=== PATIENT | female | born 1940 | race Caucasian/White ===

== ENCOUNTER 2019-02-09 16:31 | Inpatient (IN) ==
[2019-02-09] MEDS ORDERED: GLUCAGON 1 MG VIAL IM PRN (16:47)
[2019-02-09] MEDS ORDERED: DEXTROSE 50% 25 GM/50 ML SYRINGE IV PRN (16:47)
[2019-02-09] MEDS ORDERED: MAGNESIUM HYDROXIDE SUSP 30 ML UDCUP PO PRN (16:47)
[2019-02-09] MEDS ORDERED: ONDANSETRON 4 MG/2 ML VIAL IV PRN (16:47)
[2019-02-09] MEDS ORDERED: traMADol 50 MG TABLET PO PRN (16:47)
[2019-02-09] MEDS ORDERED: ACETAMINOPHEN 325 MG TABLET PO PRN (16:47)
[2019-02-09] MEDS ORDERED: ZINC OXIDE PASTE 113 GM TUBE TOP PRN (17:56)
[2019-02-09 18:05] LABS: Basophils % 0.4 % (0.0-0.8); Eosinophils # 0.1 10*3/uL (0.0-0.87); Hematocrit 39.3 VOL% (35.7-47.0); Hemoglobin 12.1 GM/DL (12.0-16.0); Immature Granulocytes % 0.4 %; Immature Granulocytes Absolute 0.02 #; Lymphocytes # 1.5 10*3/uL (1.4-4.0); Lymphocytes % 29.6 % (21.3-54.2); Mean Corpuscular HGB Conc 30.8 GM/DL (32-36); Mean Corpuscular Hemoglobin 29 PG (27-34); Mean Corpuscular Volume 93.3 FL (87-102); Mean Platelet Volume 9.3 FL (9.6-12.0); Monocytes # 0.4 10*3/uL (0.11-0.8); Monocytes % 8.3 % (1.7-12.7); Neutrophils % 59.3 % (38.7-73.9); Platelet Count 141 T/CUMM (130-400); Red Blood Count 4.21 MC/CUMM (3.8-5.5); Red Cell Distribution Width 14.7 % (9.3-17.3)
[2019-02-09] MEDS: SODIUM CHLORIDE 0.45% 1,000 ML IV SCH (18:20)
[2019-02-09] MEDS: methylPREDNISolone SOD SUC 40 MG/1 ML VIAL IV SCH (18:20)
[2019-02-09 18:27] LABS: Albumin 3.6 G/DL (3.4-5.0); Bilirubin,Total 0.5 MG/DL (0.2-1.0); Calcium 8.5 MG/DL (8.5-10.1); Osmolality,Calculated 279.3 MOS/KG (273-304); Potassium 2.8 MMOL/L (3.5-5.1)
[2019-02-09] MEDS ORDERED: POTASSIUM CHLORIDE 20 MEQ TABLET PO ONE (19:09)
[2019-02-09] MEDS ORDERED: POTASSIUM CHLORIDE 20 MEQ TABLET PO PRN (19:09)
[2019-02-09] MEDS: ALBUTEROL/IPRATROPIUM 3 ML NEB RESP TX SCH ×2 (19:28→23:43)
[2019-02-09] MEDS: INSULIN REGULAR 100 UNIT/ML SUBCUT SCH (20:41)
[2019-02-09] MEDS: BUDESONIDE/FORMOTEROL 160-4.5 INHALER 6 GM INH SCH (21:30)
[2019-02-09] MEDS: LEVOFLOXACIN INJ 750 MG in PREMIX 1 EACH IV SCH (21:32)
[2019-02-09] MEDS: CITALOPRAM 40 MG TABLET PO SCH (21:35)
[2019-02-09] MEDS: ATORVASTATIN 40 MG TABLET PO SCH (21:36)
[2019-02-09] MEDS: METOPROLOL TARTRATE 100 MG TABLET PO SCH (21:36)
[2019-02-09] MEDS: DOCUSATE SODIUM 100 MG CAPSULE PO SCH (21:36)
[2019-02-10] MEDS: methylPREDNISolone SOD SUC 40 MG/1 ML VIAL IV SCH ×4 (01:17→17:23)
[2019-02-10] MEDS: ALBUTEROL/IPRATROPIUM 3 ML NEB RESP TX SCH ×5 (02:40→19:17)
[2019-02-10 05:39] LABS: Calcium 8.4 MG/DL (8.5-10.1); Osmolality,Calculated 280.4 MOS/KG (273-304); Potassium 3.5 MMOL/L (3.5-5.1); Risk Ratio 1.84; VLDL CHOLESTEROL 10.4 MG/DL
[2019-02-10] MEDS: POTASSIUM CHLORIDE 20 MEQ TABLET PO SCH (08:08)
[2019-02-10] MEDS: TICAGRELOR 90 MG TABLET PO SCH (08:08)
[2019-02-10] MEDS: ASPIRIN EC 81 MG TABLET PO SCH (08:08)
[2019-02-10] MEDS: PANTOPRAZOLE 40 MG TABLET PO SCH (08:08)
[2019-02-10] MEDS: FUROSEMIDE 40 MG TABLET PO SCH (08:08)
[2019-02-10] MEDS: INSULIN REGULAR 100 UNIT/ML SUBCUT SCH ×4 (08:08→21:34)
[2019-02-10] MEDS: METOPROLOL TARTRATE 100 MG TABLET PO SCH ×2 (08:08→21:25)
[2019-02-10] MEDS: DOCUSATE SODIUM 100 MG CAPSULE PO SCH ×2 (08:08→21:25)
[2019-02-10 08:11] LABS: Troponin I < 0.015 NG/ML (0.00-0.045)
[2019-02-10] MEDS: BUDESONIDE/FORMOTEROL 160-4.5 INHALER 6 GM INH SCH ×2 (08:11→21:29)
[2019-02-10] MEDS: SODIUM CHLOR 0.45% KCL 20 MEQ 20 MEQ/1,000 ML BAG IV SCH ×2 (08:34→23:17)
[2019-02-10] MEDS: SODIUM CHLORIDE 0.45% 1,000 ML IV SCH (09:44)
[2019-02-10] MEDS ORDERED: NICOTINE 21 MG/24 HR PATCH TRANSDERM PRN (14:34)
[2019-02-10 16:45] LABS: Troponin I < 0.015 NG/ML (0.00-0.045)
[2019-02-10] MEDS: CITALOPRAM 40 MG TABLET PO SCH (21:25)
[2019-02-10] MEDS: ATORVASTATIN 40 MG TABLET PO SCH (21:25)
[2019-02-10] MEDS: LEVOFLOXACIN INJ 750 MG in PREMIX 1 EACH IV SCH (21:36)
[2019-02-10] MEDS: TEMAZEPAM 7.5 MG CAPSULE PO SCH (23:16)
[2019-02-11 00:12] LABS: Troponin I < 0.015 NG/ML (0.00-0.045)
[2019-02-11] MEDS: ALBUTEROL/IPRATROPIUM 3 ML NEB RESP TX SCH ×7 (00:36→22:55)
[2019-02-11] MEDS: methylPREDNISolone SOD SUC 40 MG/1 ML VIAL IV SCH ×3 (01:55→18:23)
[2019-02-11 03:31] LABS: Apearance,Urine CLEAR (Clear); Bilirubin,Urine Negative (Negative); Blood, Urine Negative (Negative); Glucose,Urine (UA) 50 mg/dL (Negative); Hyaline Casts,Urine 1 /LPF (0-3); Ketones,Urine Negative (Negative); Mucus,Urine Occasional /LPF (Occasional); Nitrite,Urine Negative (Negative); Protein,Urine Negative; RBC,Urine <1 /HPF (0-4); Squamous Epithelial Cell,Urine Occasional /HPF (0-10); Urine Color Yellow (Yellow); Urine Specific Gravity 1.017 (1.001-1.035); Urine Urobilinogen < 2.0 EU/DL (0.2-1.0); WBC,Urine 1 /HPF (0-6)
[2019-02-11 05:34] LABS: Hematocrit 35.2 VOL% (35.7-47.0); Hemoglobin 10.9 GM/DL (12.0-16.0); Immature Granulocytes % 0.3 %; Immature Granulocytes Absolute 0.02 #; Lymphocytes # 0.5 10*3/uL (1.4-4.0); Lymphocytes % 8.6 % (21.3-54.2); Mean Corpuscular Hemoglobin 29 PG (27-34); Mean Corpuscular Volume 94.1 FL (87-102); Mean Platelet Volume 10.3 FL (9.6-12.0); Monocytes # 0.2 10*3/uL (0.11-0.8); Neutrophils # 5.5 10*3/uL (1.4-7.4); Neutrophils % 88.1 % (38.7-73.9); Platelet Count 141 T/CUMM (130-400); Red Blood Count 3.74 MC/CUMM (3.8-5.5); Red Cell Distribution Width 14.5 % (9.3-17.3); White Blood Count 6.3 T/CUMM (4-12)
[2019-02-11 06:00] LABS: Alanine Aminotransferase 16 U/L (13-56); Albumin 3.1 G/DL (3.4-5.0); Alkaline Phosphatase 87 U/L (45-117); Aspartate Amino Transferase 13 U/L (0-37); Bilirubin,Total < 0.39 MG/DL (0.2-1.0); Blood Urea Nitrogen 13 MG/DL (7-18); Calcium 8.4 MG/DL (8.5-10.1); Glucose 215 MG/DL (74-106); Osmolality,Calculated 284.4 MOS/KG (273-304); Potassium 3.8 MMOL/L (3.5-5.1); Sodium 140 MMOL/L (136-145); Total Protein 6.1 G/DL (6.4-8.3)
[2019-02-11] MEDS: METOPROLOL TARTRATE 100 MG TABLET PO SCH ×2 (09:07→20:07)
[2019-02-11] MEDS: POTASSIUM CHLORIDE 20 MEQ TABLET PO SCH (09:07)
[2019-02-11] MEDS: PANTOPRAZOLE 40 MG TABLET PO SCH (09:07)
[2019-02-11] MEDS: DOCUSATE SODIUM 100 MG CAPSULE PO SCH ×2 (09:07→20:07)
[2019-02-11] MEDS: ASPIRIN EC 81 MG TABLET PO SCH (09:08)
[2019-02-11] MEDS: FUROSEMIDE 40 MG TABLET PO SCH (09:08)
[2019-02-11] MEDS: INSULIN REGULAR 100 UNIT/ML SUBCUT SCH ×4 (09:08→22:44)
[2019-02-11] MEDS: TICAGRELOR 90 MG TABLET PO SCH (09:08)
[2019-02-11] MEDS: BUDESONIDE/FORMOTEROL 160-4.5 INHALER 6 GM INH SCH ×2 (09:09→20:07)
[2019-02-11] MEDS: SODIUM CHLOR 0.45% KCL 20 MEQ 20 MEQ/1,000 ML BAG IV SCH (12:26)
[2019-02-11] MEDS: TEMAZEPAM 7.5 MG CAPSULE PO SCH (20:06)
[2019-02-11] MEDS: CITALOPRAM 40 MG TABLET PO SCH (20:06)
[2019-02-11] MEDS: LEVOFLOXACIN INJ 750 MG in PREMIX 1 EACH IV SCH (20:07)
[2019-02-11] MEDS: ATORVASTATIN 40 MG TABLET PO SCH (20:07)
[2019-02-12] MEDS: ALBUTEROL/IPRATROPIUM 3 ML NEB RESP TX SCH ×5 (02:51→19:28)
[2019-02-12] MEDS: methylPREDNISolone SOD SUC 40 MG/1 ML VIAL IV SCH ×3 (03:46→17:16)
[2019-02-12] MEDS: SODIUM CHLOR 0.45% KCL 20 MEQ 20 MEQ/1,000 ML BAG IV SCH (03:53)
[2019-02-12 05:46] LABS: Basophils % 0.1 % (0.0-0.8); Hematocrit 36.9 VOL% (35.7-47.0); Immature Granulocytes % 0.8 %; Immature Granulocytes Absolute 0.07 #; Lymphocytes # 0.8 10*3/uL (1.4-4.0); Lymphocytes % 9.5 % (21.3-54.2); Mean Corpuscular HGB Conc 29.8 GM/DL (32-36); Mean Corpuscular Hemoglobin 29 PG (27-34); Mean Corpuscular Volume 95.8 FL (87-102); Mean Platelet Volume 9.8 FL (9.6-12.0); Monocytes # 0.3 10*3/uL (0.11-0.8); Monocytes % 4.1 % (1.7-12.7); Neutrophils # 7.1 10*3/uL (1.4-7.4); Neutrophils % 85.5 % (38.7-73.9); Platelet Count 163 T/CUMM (130-400); Red Blood Count 3.85 MC/CUMM (3.8-5.5); Red Cell Distribution Width 14.6 % (9.3-17.3); White Blood Count 8.3 T/CUMM (4-12)
[2019-02-12 06:18] LABS: Calcium 8.3 MG/DL (8.5-10.1); Osmolality,Calculated 283.5 MOS/KG (273-304); Potassium 3.9 MMOL/L (3.5-5.1)
[2019-02-12] MEDS: ASPIRIN EC 81 MG TABLET PO SCH (10:10)
[2019-02-12] MEDS: TICAGRELOR 90 MG TABLET PO SCH (10:10)
[2019-02-12] MEDS: DOCUSATE SODIUM 100 MG CAPSULE PO SCH ×2 (10:11→20:33)
[2019-02-12] MEDS: METOPROLOL TARTRATE 100 MG TABLET PO SCH ×2 (10:11→20:34)
[2019-02-12] MEDS: FUROSEMIDE 40 MG TABLET PO SCH (10:11)
[2019-02-12] MEDS: PANTOPRAZOLE 40 MG TABLET PO SCH (10:12)
[2019-02-12] MEDS: POTASSIUM CHLORIDE 20 MEQ TABLET PO SCH (10:18)
[2019-02-12] MEDS: BUDESONIDE/FORMOTEROL 160-4.5 INHALER 6 GM INH SCH ×2 (10:22→20:52)
[2019-02-12] MEDS: INSULIN REGULAR 100 UNIT/ML SUBCUT SCH ×4 (10:23→20:44)
[2019-02-12] MEDS: LEVOFLOXACIN INJ 750 MG in PREMIX 1 EACH IV SCH (20:32)
[2019-02-12] MEDS: ATORVASTATIN 40 MG TABLET PO SCH (20:33)
[2019-02-12] MEDS: CITALOPRAM 40 MG TABLET PO SCH (20:33)
[2019-02-12] MEDS: TEMAZEPAM 7.5 MG CAPSULE PO SCH (20:33)
[2019-02-13] MEDS: ALBUTEROL/IPRATROPIUM 3 ML NEB RESP TX SCH ×6 (00:49→19:43)
[2019-02-13] MEDS: methylPREDNISolone SOD SUC 40 MG/1 ML VIAL IV SCH ×3 (02:26→17:46)
[2019-02-13] MEDS: SODIUM CHLOR 0.45% KCL 20 MEQ 20 MEQ/1,000 ML BAG IV SCH (02:27)
[2019-02-13 05:02] LABS: Basophils % 0.2 % (0.0-0.8); Hematocrit 37.4 VOL% (35.7-47.0); Hemoglobin 11.5 GM/DL (12.0-16.0); Immature Granulocytes % 1.6 %; Immature Granulocytes Absolute 0.13 #; Lymphocytes # 0.8 10*3/uL (1.4-4.0); Lymphocytes % 9.6 % (21.3-54.2); Mean Corpuscular HGB Conc 30.7 GM/DL (32-36); Mean Corpuscular Hemoglobin 29 PG (27-34); Mean Corpuscular Volume 94.9 FL (87-102); Mean Platelet Volume 10.1 FL (9.6-12.0); Monocytes # 0.4 10*3/uL (0.11-0.8); Monocytes % 4.5 % (1.7-12.7); Neutrophils # 6.7 10*3/uL (1.4-7.4); Neutrophils % 84.1 % (38.7-73.9); Platelet Count 163 T/CUMM (130-400); Red Blood Count 3.94 MC/CUMM (3.8-5.5); Red Cell Distribution Width 14.5 % (9.3-17.3)
[2019-02-13 05:21] LABS: Calcium 8.3 MG/DL (8.5-10.1); Osmolality,Calculated 280.7 MOS/KG (273-304); Potassium 4.1 MMOL/L (3.5-5.1)
[2019-02-13] MEDS: BUDESONIDE/FORMOTEROL 160-4.5 INHALER 6 GM INH SCH ×2 (09:26→20:46)
[2019-02-13] MEDS: ASPIRIN EC 81 MG TABLET PO SCH (09:27)
[2019-02-13] MEDS: POTASSIUM CHLORIDE 20 MEQ TABLET PO SCH (09:27)
[2019-02-13] MEDS: TICAGRELOR 90 MG TABLET PO SCH (09:27)
[2019-02-13] MEDS: DOCUSATE SODIUM 100 MG CAPSULE PO SCH ×2 (09:27→20:46)
[2019-02-13] MEDS: FUROSEMIDE 40 MG TABLET PO SCH (09:27)
[2019-02-13] MEDS: PANTOPRAZOLE 40 MG TABLET PO SCH (09:27)
[2019-02-13] MEDS: INSULIN REGULAR 100 UNIT/ML SUBCUT SCH ×4 (09:28→21:11)
[2019-02-13] MEDS: METOPROLOL TARTRATE 100 MG TABLET PO SCH ×2 (09:28→20:46)
[2019-02-13] MEDS: ATORVASTATIN 40 MG TABLET PO SCH (20:46)
[2019-02-13] MEDS: CITALOPRAM 40 MG TABLET PO SCH (20:46)
[2019-02-13] MEDS: TEMAZEPAM 7.5 MG CAPSULE PO SCH (20:46)
[2019-02-13] MEDS: LEVOFLOXACIN INJ 750 MG in PREMIX 1 EACH IV SCH (20:48)
[2019-02-14] MEDS: ALBUTEROL/IPRATROPIUM 3 ML NEB RESP TX SCH ×5 (00:44→14:45)
[2019-02-14] MEDS: methylPREDNISolone SOD SUC 40 MG/1 ML VIAL IV SCH ×2 (02:19→09:14)
[2019-02-14] MEDS: SODIUM CHLOR 0.45% KCL 20 MEQ 20 MEQ/1,000 ML BAG IV SCH ×2 (07:32→07:33)
[2019-02-14] MEDS: INSULIN REGULAR 100 UNIT/ML SUBCUT SCH ×2 (08:02→12:09)
[2019-02-14] MEDS ORDERED: predniSONE 20 MG TABLET PO SCH (09:00)
[2019-02-14] MEDS: TICAGRELOR 90 MG TABLET PO SCH (09:14)
[2019-02-14] MEDS: POTASSIUM CHLORIDE 20 MEQ TABLET PO SCH (09:14)
[2019-02-14] MEDS: FUROSEMIDE 40 MG TABLET PO SCH (09:14)
[2019-02-14] MEDS: ASPIRIN EC 81 MG TABLET PO SCH (09:14)
[2019-02-14] MEDS: METOPROLOL TARTRATE 100 MG TABLET PO SCH (09:14)
[2019-02-14] MEDS: BUDESONIDE/FORMOTEROL 160-4.5 INHALER 6 GM INH SCH (09:14)
[2019-02-14] MEDS: DOCUSATE SODIUM 100 MG CAPSULE PO SCH (09:14)
[2019-02-14] MEDS: PANTOPRAZOLE 40 MG TABLET PO SCH (09:14)
[2019-02-14 11:53] VITALS: BP 135/70
[2019-02-14] MEDS ORDERED: LEVOFLOXACIN 500 MG TABLET PO SCH (21:00)
== END 2019-02-14 16:56 | disposition home or self-care (01) | DRG 191 ==
LOC: N.2E 17:10
PROVIDERS: ADMIT Family Medicine; ATTEND Family Medicine

== ENCOUNTER 2019-08-01 07:28 | Inpatient (IN) ==
[2019-08-01] MEDS ORDERED: ALBUTEROL 2.5 MG/3 ML NEB RESP TX STA ×2 (07:48→09:54)
[2019-08-01] MEDS ORDERED: predniSONE 20 MG TABLET PO STA (07:48)
[2019-08-01 10:35] LABS: Basophils % 0.3 % (0.0-0.8); Eosinophils % 0.2 % (0.00-10.9); Hematocrit 37.2 VOL% (35.7-47.0); Hemoglobin 11.9 GM/DL (12.0-16.0); Immature Granulocytes % 0.5 %; Immature Granulocytes Absolute 0.06 #; Lymphocytes # 0.5 10*3/uL (1.4-4.0); Lymphocytes % 4.2 % (21.3-54.2); Mean Corpuscular Volume 92.1 FL (87-102); Mean Platelet Volume 9.3 FL (9.6-12.0); Monocytes % 1.8 % (1.7-12.7); Platelet Count 197 T/CUMM (130-400); Red Blood Count 4.04 MC/CUMM (3.8-5.5); Red Cell Distribution Width 14.6 % (9.3-17.3); White Blood Count 11.5 T/CUMM (4-12)
[2019-08-01 10:54] LABS: Calcium 8.9 MG/DL (8.5-10.1); Osmolality,Calculated 280.5 MOS/KG (273-304)
[2019-08-01 11:07] LABS: Band Neutrophils 1 % (0-10); Hypochromasia 1+; Lymphocytes 3 % (20-55); Microcytosis Slight; Segmented Neutrophils 93 % (50-85); Total Cells Counted 100
[2019-08-01 11:08] LABS: Ovalocytes Slight; Platelet Estimate Adequate
[2019-08-01] MEDS ORDERED: ACETAMINOPHEN 325 MG TABLET PO PRN (11:21)
[2019-08-01] MEDS ORDERED: INFLUENZA VIRUS VACCINE 0.5 ML SYRINGE IM ONE (11:39)
[2019-08-01] MEDS ORDERED: POTASSIUM CHLORIDE 20 MEQ TABLET PO PRN (14:08)
[2019-08-01] MEDS ORDERED: FUROSEMIDE 40 MG TABLET PO PRN (14:08)
[2019-08-01] MEDS: ALBUTEROL 2.5 MG/3 ML NEB RESP TX SCH ×3 (14:35→23:57)
[2019-08-01] MEDS: LEVOFLOXACIN INJ 500 MG in PREMIX 1 EACH IV SCH (14:43)
[2019-08-01] MEDS: SODIUM CHLORIDE 0.9% 1,000 ML IV SCH (14:43)
[2019-08-01] MEDS: traMADol 50 MG TABLET PO SCH ×2 (14:56→21:05)
[2019-08-01] MEDS ORDERED: methylPREDNISolone SOD SUC 125 MG/2 ML VIAL IV SCH (15:00)
[2019-08-01] MEDS ORDERED: methylPREDNISolone SOD SUC 40 MG/1 ML VIAL IM SCH (15:00)
[2019-08-01] MEDS: ONDANSETRON 4 MG/2 ML VIAL IV PRN (17:03)
[2019-08-01] MEDS: INSULIN LISPRO 100 UNIT/ML SUBCUT SCH ×2 (17:04→21:05)
[2019-08-01 17:37] LABS: Apearance,Urine CLEAR (Clear); Bilirubin,Urine Negative (Negative); Blood, Urine Negative (Negative); Glucose,Urine (UA) >=500 mg/dL (Negative); Ketones,Urine Negative (Negative); Mucus,Urine Occasional /LPF (Occasional); Nitrite,Urine Negative (Negative); Protein,Urine Negative; RBC,Urine 1 /HPF (0-4); Squamous Epithelial Cell,Urine Occasional /HPF (0-10); Urine Color Yellow (Yellow); Urine Specific Gravity 1.017 (1.001-1.035); Urine Urobilinogen < 2.0 EU/DL (0.2-1.0); WBC,Urine 3 /HPF (0-6)
[2019-08-01] MEDS: ENOXAPARIN 40 MG/0.4 ML SYRINGE SUBCUT SCH (21:05)
[2019-08-01] MEDS: METOPROLOL TARTRATE 100 MG TABLET PO SCH (21:05)
[2019-08-01] MEDS: DOCUSATE SODIUM 100 MG CAPSULE PO SCH (21:05)
[2019-08-01] MEDS: ATORVASTATIN 40 MG TABLET PO SCH (21:05)
[2019-08-01] MEDS: BUDESONIDE/FORMOTEROL 160-4.5 INHALER 6 GM INH SCH (21:05)
[2019-08-01] MEDS: CITALOPRAM 20 MG TABLET PO SCH (21:05)
[2019-08-02] MEDS: SODIUM CHLORIDE 0.9% 1,000 ML IV SCH ×3 (00:04→19:42)
[2019-08-02] MEDS: methylPREDNISolone SOD SUC 40 MG/1 ML VIAL IV SCH ×4 (00:10→22:28)
[2019-08-02] MEDS: ALBUTEROL 2.5 MG/3 ML NEB RESP TX SCH ×6 (03:36→23:31)
[2019-08-02 04:57] LABS: Basophils % 0.1 % (0.0-0.8); Hematocrit 32.8 VOL% (35.7-47.0); Hemoglobin 10.5 GM/DL (12.0-16.0); Immature Granulocytes % 0.5 %; Immature Granulocytes Absolute 0.05 #; Lymphocytes # 0.6 10*3/uL (1.4-4.0); Mean Corpuscular Volume 91.4 FL (87-102); Mean Platelet Volume 9.6 FL (9.6-12.0); Monocytes % 0.6 % (1.7-12.7); Neutrophils % 92.8 % (38.7-73.9); Platelet Count 189 T/CUMM (130-400); Red Blood Count 3.59 MC/CUMM (3.8-5.5); Red Cell Distribution Width 14.5 % (9.3-17.3); White Blood Count 9.6 T/CUMM (4-12)
[2019-08-02 05:18] LABS: Alanine Aminotransferase 26 U/L (13-56); Albumin 2.4 G/DL (3.4-5.0); Alkaline Phosphatase 67 U/L (45-117); Aspartate Amino Transferase 15 U/L (0-37); Bilirubin,Total < 0.39 MG/DL (0.2-1.0); Blood Urea Nitrogen 15 MG/DL (7-18); Calcium 8.2 MG/DL (8.5-10.1); Estimated Glom Filtration Rate 73 ML/MIN; Glucose 171 MG/DL (74-106); HDL Cholesterol 44 MG/DL (40-60); Osmolality,Calculated 287.1 MOS/KG (273-304); Risk Ratio 2.39; Thyroid Stimulating Hormone 0.273 uIU/ml (0.358-3.74); Total Protein 5.9 G/DL (6.4-8.3); Triglycerides 64 MG/DL (2-150); VLDL CHOLESTEROL 12.8 MG/DL
[2019-08-02 05:30] LABS: Hypochromasia 1+; Lymphocytes 4 % (20-55); Platelet Estimate Adequate; Segmented Neutrophils 96 % (50-85); Total Cells Counted 100
[2019-08-02 05:31] LABS: Microcytosis Slight
[2019-08-02] MEDS ORDERED: INFLUENZA VIRUS VACCINE 0.5 ML SYRINGE IM ONE (07:48)
[2019-08-02] MEDS: DOCUSATE SODIUM 100 MG CAPSULE PO SCH ×2 (08:42→20:19)
[2019-08-02] MEDS: ASPIRIN EC 81 MG TABLET PO SCH (08:42)
[2019-08-02] MEDS: PANTOPRAZOLE 40 MG TABLET PO SCH (08:42)
[2019-08-02] MEDS: traMADol 50 MG TABLET PO SCH ×3 (08:43→20:33)
[2019-08-02] MEDS: BUDESONIDE/FORMOTEROL 160-4.5 INHALER 6 GM INH SCH ×2 (08:43→20:28)
[2019-08-02] MEDS: INSULIN LISPRO 100 UNIT/ML SUBCUT SCH ×4 (10:00→20:28)
[2019-08-02] MEDS: METOPROLOL TARTRATE 100 MG TABLET PO SCH ×2 (13:11→20:33)
[2019-08-02] MEDS: ONDANSETRON 4 MG/2 ML VIAL IV PRN (13:11)
[2019-08-02] MEDS: LEVOFLOXACIN INJ 500 MG in PREMIX 1 EACH IV SCH (16:01)
[2019-08-02] MEDS: ENOXAPARIN 40 MG/0.4 ML SYRINGE SUBCUT SCH (20:19)
[2019-08-02] MEDS: ATORVASTATIN 40 MG TABLET PO SCH (20:19)
[2019-08-02] MEDS: CITALOPRAM 20 MG TABLET PO SCH (20:19)
[2019-08-03] MEDS: ALBUTEROL 2.5 MG/3 ML NEB RESP TX SCH ×6 (02:56→23:59)
[2019-08-03 04:41] LABS: Basophils % 0.1 % (0.0-0.8); Hematocrit 32.1 VOL% (35.7-47.0); Hemoglobin 10.1 GM/DL (12.0-16.0); Immature Granulocytes Absolute 0.09 #; Lymphocytes # 0.5 10*3/uL (1.4-4.0); Lymphocytes % 5.4 % (21.3-54.2); Mean Corpuscular HGB Conc 31.5 GM/DL (32-36); Mean Platelet Volume 9.7 FL (9.6-12.0); Monocytes % 1.5 % (1.7-12.7); Platelet Count 196 T/CUMM (130-400); Red Blood Count 3.45 MC/CUMM (3.8-5.5); Red Cell Distribution Width 14.6 % (9.3-17.3); White Blood Count 9.2 T/CUMM (4-12)
[2019-08-03 05:09] LABS: Hypochromasia 1+; Lymphocytes 5 % (20-55); Platelet Estimate Adequate; Segmented Neutrophils 93 % (50-85); Total Cells Counted 100
[2019-08-03 05:10] LABS: Microcytosis Slight
[2019-08-03 05:30] LABS: Free T4 (Free Thyroxine) 0.63 NG/DL (0.76-1.46); Thyroid Stimulating Hormone 0.278 uIU/ml (0.358-3.74)
[2019-08-03] MEDS: SODIUM CHLORIDE 0.9% 1,000 ML IV SCH ×2 (06:07→20:27)
[2019-08-03] MEDS: methylPREDNISolone SOD SUC 40 MG/1 ML VIAL IV SCH ×2 (06:07→17:26)
[2019-08-03] MEDS: INSULIN LISPRO 100 UNIT/ML SUBCUT SCH ×4 (09:23→20:27)
[2019-08-03] MEDS: ASPIRIN EC 81 MG TABLET PO SCH (09:25)
[2019-08-03] MEDS: METOPROLOL TARTRATE 100 MG TABLET PO SCH ×2 (09:25→20:27)
[2019-08-03] MEDS: DOCUSATE SODIUM 100 MG CAPSULE PO SCH ×2 (09:26→20:27)
[2019-08-03] MEDS: PANTOPRAZOLE 40 MG TABLET PO SCH (09:26)
[2019-08-03] MEDS: traMADol 50 MG TABLET PO SCH ×3 (09:30→20:27)
[2019-08-03] MEDS: BUDESONIDE/FORMOTEROL 160-4.5 INHALER 6 GM INH SCH ×2 (09:30→20:26)
[2019-08-03] MEDS: LEVOFLOXACIN INJ 500 MG in PREMIX 1 EACH IV SCH (14:59)
[2019-08-03] MEDS: ONDANSETRON 4 MG/2 ML VIAL IV PRN (15:06)
[2019-08-03] MEDS: ENOXAPARIN 40 MG/0.4 ML SYRINGE SUBCUT SCH (20:26)
[2019-08-03] MEDS: ATORVASTATIN 40 MG TABLET PO SCH (20:27)
[2019-08-03] MEDS: CITALOPRAM 20 MG TABLET PO SCH (20:27)
[2019-08-04] MEDS: methylPREDNISolone SOD SUC 40 MG/1 ML VIAL IV SCH ×3 (00:43→17:15)
[2019-08-04] MEDS: ALBUTEROL 2.5 MG/3 ML NEB RESP TX SCH ×6 (03:28→23:16)
[2019-08-04 05:49] LABS: Hematocrit 34.2 VOL% (35.7-47.0); Hemoglobin 10.8 GM/DL (12.0-16.0); Immature Granulocytes % 0.9 %; Immature Granulocytes Absolute 0.06 #; Lymphocytes # 0.5 10*3/uL (1.4-4.0); Lymphocytes % 8.5 % (21.3-54.2); Mean Corpuscular HGB Conc 31.6 GM/DL (32-36); Mean Corpuscular Volume 93.7 FL (87-102); Mean Platelet Volume 9.3 FL (9.6-12.0); Monocytes % 2.1 % (1.7-12.7); Neutrophils % 88.5 % (38.7-73.9); Platelet Count 191 T/CUMM (130-400); Red Blood Count 3.65 MC/CUMM (3.8-5.5); Red Cell Distribution Width 14.6 % (9.3-17.3); White Blood Count 6.3 T/CUMM (4-12)
[2019-08-04 06:19] LABS: Albumin 2.5 G/DL (3.4-5.0); Bilirubin,Total 0.7 MG/DL (0.2-1.0); Calcium 7.9 MG/DL (8.5-10.1); Osmolality,Calculated 285.3 MOS/KG (273-304); Total Protein 5.7 G/DL (6.4-8.3)
[2019-08-04] MEDS: ONDANSETRON 4 MG/2 ML VIAL IV PRN (07:56)
[2019-08-04] MEDS: INSULIN LISPRO 100 UNIT/ML SUBCUT SCH ×4 (07:56→22:34)
[2019-08-04] MEDS: SODIUM CHLORIDE 0.9% 1,000 ML IV SCH ×2 (08:00→19:03)
[2019-08-04] MEDS: traMADol 50 MG TABLET PO SCH ×3 (09:53→22:34)
[2019-08-04] MEDS: DOCUSATE SODIUM 100 MG CAPSULE PO SCH ×2 (09:54→21:23)
[2019-08-04] MEDS: PANTOPRAZOLE 40 MG TABLET PO SCH (09:54)
[2019-08-04] MEDS: METOPROLOL TARTRATE 100 MG TABLET PO SCH ×2 (09:54→21:23)
[2019-08-04] MEDS: BUDESONIDE/FORMOTEROL 160-4.5 INHALER 6 GM INH SCH ×2 (09:54→21:23)
[2019-08-04] MEDS: ASPIRIN EC 81 MG TABLET PO SCH (09:54)
[2019-08-04] MEDS: MENTHOL/ZINC OXIDE OINT 71 GM JAR TOP SCH ×2 (12:45→21:23)
[2019-08-04] MEDS: LEVOFLOXACIN INJ 500 MG in PREMIX 1 EACH IV SCH (14:54)
[2019-08-04] MEDS: ENOXAPARIN 40 MG/0.4 ML SYRINGE SUBCUT SCH (21:23)
[2019-08-04] MEDS: CITALOPRAM 20 MG TABLET PO SCH (21:23)
[2019-08-04] MEDS: ATORVASTATIN 40 MG TABLET PO SCH (21:23)
[2019-08-05] MEDS: ALBUTEROL 2.5 MG/3 ML NEB RESP TX SCH ×2 (00:45→07:40)
[2019-08-05] MEDS: methylPREDNISolone SOD SUC 40 MG/1 ML VIAL IV SCH (01:02)
[2019-08-05] MEDS: SODIUM CHLORIDE 0.9% 1,000 ML IV SCH (05:22)
[2019-08-05 05:59] LABS: Hematocrit 34.7 VOL% (35.7-47.0); Hemoglobin 10.7 GM/DL (12.0-16.0); Immature Granulocytes % 2.3 %; Lymphocytes # 0.4 10*3/uL (1.4-4.0); Lymphocytes % 9.6 % (21.3-54.2); Mean Corpuscular HGB Conc 30.8 GM/DL (32-36); Mean Platelet Volume 9.6 FL (9.6-12.0); Neutrophils % 85.1 % (38.7-73.9); Platelet Count 204 T/CUMM (130-400); Red Blood Count 3.69 MC/CUMM (3.8-5.5); Red Cell Distribution Width 14.6 % (9.3-17.3); White Blood Count 4.3 T/CUMM (4-12)
[2019-08-05 06:25] LABS: Calcium 7.7 MG/DL (8.5-10.1); Osmolality,Calculated 284.5 MOS/KG (273-304)
[2019-08-05] MEDS: ONDANSETRON 4 MG/2 ML VIAL IV PRN (07:03)
[2019-08-05 07:57] VITALS: BP 151/68
[2019-08-05] MEDS ORDERED: predniSONE 10 MG TABLET PO SCH (09:00)
[2019-08-05] MEDS: INSULIN LISPRO 100 UNIT/ML SUBCUT SCH (09:01)
[2019-08-05] MEDS: METOPROLOL TARTRATE 100 MG TABLET PO SCH (09:01)
[2019-08-05] MEDS: PANTOPRAZOLE 40 MG TABLET PO SCH (09:01)
[2019-08-05] MEDS: DOCUSATE SODIUM 100 MG CAPSULE PO SCH (09:01)
[2019-08-05] MEDS: traMADol 50 MG TABLET PO SCH (09:01)
[2019-08-05] MEDS: ASPIRIN EC 81 MG TABLET PO SCH (09:01)
[2019-08-05] MEDS: MENTHOL/ZINC OXIDE OINT 71 GM JAR TOP SCH (09:02)
[2019-08-05] MEDS: BUDESONIDE/FORMOTEROL 160-4.5 INHALER 6 GM INH SCH (09:02)
[2019-08-05] MEDS: LEVOFLOXACIN INJ 500 MG in PREMIX 1 EACH IV SCH (09:03)
[2019-08-05] MEDS ORDERED: PNEUMOCOCCAL VACCINE (13 VALENT) 0.5 ML SYRINGE IM ONE (10:30)
== END 2019-08-05 11:04 | disposition swing bed (61) | DRG 190 ==
LOC: N.ED 07:28 → N.EDINP 09:55 → N.2E 10:17
PROVIDERS: ADMIT Family Medicine; ATTEND Family Medicine

== ENCOUNTER 2019-11-11 05:54 | Inpatient (IN) ==
[2019-11-11] MEDS ORDERED: methylPREDNISolone SOD SUC 125 MG/2 ML VIAL IV STA (06:38)
[2019-11-11] MEDS ORDERED: ONDANSETRON 4 MG/2 ML VIAL IV STA (06:39)
[2019-11-11] MEDS ORDERED: HYDROmorphone 2 MG/1 ML VIAL IV STA (06:39)
[2019-11-11 06:48] LABS: Basophils # 0.1 10*3/uL (0.0-0.2); Basophils % 0.7 % (0.0-0.8); Eosinophils # 0.5 10*3/uL (0.0-0.87); Eosinophils % 5.1 % (0.00-10.9); Hematocrit 41.7 VOL% (35.7-47.0); Hemoglobin 13.3 GM/DL (12.0-16.0); Immature Granulocytes % 1.7 %; Immature Granulocytes Absolute 0.15 #; Lymphocytes # 0.9 10*3/uL (1.4-4.0); Lymphocytes % 10.7 % (21.3-54.2); Mean Corpuscular HGB Conc 31.9 GM/DL (32-36); Mean Corpuscular Volume 94.1 FL (87-102); Mean Platelet Volume 9.8 FL (9.6-12.0); Monocytes % 7.6 % (1.7-12.7); Neutrophils % 74.2 % (38.7-73.9); Platelet Count 178 T/CUMM (130-400); Red Blood Count 4.43 MC/CUMM (3.8-5.5); Red Cell Distribution Width 14.7 % (9.3-17.3); White Blood Count 8.8 T/CUMM (4-12)
[2019-11-11 07:04] LABS: Albumin 3.1 G/DL (3.4-5.0); Bilirubin,Total 0.4 MG/DL (0.2-1.0); Calcium 8.6 MG/DL (8.5-10.1); Osmolality,Calculated 275.7 MOS/KG (273-304); Total Protein 6.2 G/DL (6.4-8.3)
[2019-11-11] MEDS: ALBUTEROL 2.5 MG/3 ML NEB RESP TX SCH ×3 (07:08→07:57)
[2019-11-11 08:05] LABS: Apearance,Urine CLEAR (Clear); Bilirubin,Urine Negative (Negative); Blood, Urine Negative (Negative); Glucose,Urine (UA) Negative (Negative); Ketones,Urine Negative (Negative); Mucus,Urine Occasional /LPF (Occasional); Nitrite,Urine Negative (Negative); Protein,Urine Negative; Urine Color Yellow (Yellow); Urine Specific Gravity 1.011 (1.001-1.035); Urine Urobilinogen < 2.0 EU/DL (0.2-1.0); WBC,Urine 1 /HPF (0-6)
[2019-11-11] MEDS ORDERED: ACETAMINOPHEN 325 MG TABLET PO PRN (10:37)
[2019-11-11] MEDS ORDERED: ALBUTEROL/IPRATROPIUM 3 ML NEB RESP TX PRN (10:39)
[2019-11-11] MEDS ORDERED: DOCUSATE/SENNA 50-8.6 MG TABLET PO PRN (10:39)
[2019-11-11] MEDS ORDERED: FUROSEMIDE 20 MG TABLET PO PRN (10:39)
[2019-11-11] MEDS ORDERED: DEXTROSE 50% 25 GM/50 ML VIAL IV PRN (10:42)
[2019-11-11] MEDS ORDERED: GLUCAGON 1 MG VIAL IM PRN (10:42)
[2019-11-11] MEDS ORDERED: HYDROmorphone 2 MG/1 ML VIAL IV PRN (10:43)
[2019-11-11] MEDS ORDERED: CLORAZEPATE 7.5 MG TABLET PO PRN (11:50)
[2019-11-11] MEDS: SODIUM CHLORIDE 0.45% 1,000 ML IV SCH (11:59)
[2019-11-11] MEDS: INSULIN LISPRO 100 UNIT/ML SUBCUT SCH ×3 (13:02→22:19)
[2019-11-11] MEDS: HYDROmorphone 2 MG/1 ML VIAL IV PRN ×3 (13:24→23:04)
[2019-11-11] MEDS: cefTRIAXone 1,000 MG in SYRINGE 1 EACH IV SCH (16:22)
[2019-11-11] MEDS: POTASSIUM CHLORIDE 20 MEQ TABLET PO SCH (18:39)
[2019-11-11] MEDS: CITALOPRAM 20 MG TABLET PO SCH (22:18)
[2019-11-11] MEDS: ATORVASTATIN 40 MG TABLET PO SCH (22:18)
[2019-11-11] MEDS: METOPROLOL TARTRATE 100 MG TABLET PO SCH (22:19)
[2019-11-11] MEDS: buPROPion 75 MG TABLET PO SCH (22:19)
[2019-11-11] MEDS: BUDESONIDE/FORMOTEROL 160-4.5 INHALER 6 GM INH SCH (22:19)
[2019-11-11] MEDS: ENOXAPARIN 40 MG/0.4 ML SYRINGE SUBCUT SCH (22:19)
[2019-11-11] MEDS: DOCUSATE SODIUM 100 MG CAPSULE PO SCH (22:19)
[2019-11-12] MEDS: HYDROmorphone 2 MG/1 ML VIAL IV PRN ×4 (02:36→13:27)
[2019-11-12 06:11] LABS: Basophils % 0.3 % (0.0-0.8); Eosinophils # 0.1 10*3/uL (0.0-0.87); Eosinophils % 0.5 % (0.00-10.9); Hematocrit 36.3 VOL% (35.7-47.0); Hemoglobin 11.5 GM/DL (12.0-16.0); Immature Granulocytes % 2.2 %; Immature Granulocytes Absolute 0.24 #; Lymphocytes # 1.2 10*3/uL (1.4-4.0); Lymphocytes % 10.5 % (21.3-54.2); Mean Corpuscular HGB Conc 31.7 GM/DL (32-36); Mean Corpuscular Volume 95.5 FL (87-102); Mean Platelet Volume 9.7 FL (9.6-12.0); Monocytes % 5.9 % (1.7-12.7); Neutrophils % 80.6 % (38.7-73.9); Platelet Count 190 T/CUMM (130-400); Red Cell Distribution Width 14.5 % (9.3-17.3)
[2019-11-12 06:39] LABS: Albumin 2.6 G/DL (3.4-5.0); Bilirubin,Total 0.5 MG/DL (0.2-1.0); Calcium 8.6 MG/DL (8.5-10.1); Osmolality,Calculated 279.8 MOS/KG (273-304); Thyroid Stimulating Hormone 0.451 uIU/ml (0.358-3.74); Total Protein 6.1 G/DL (6.4-8.3)
[2019-11-12] MEDS: INSULIN LISPRO 100 UNIT/ML SUBCUT SCH ×4 (08:16→21:25)
[2019-11-12] MEDS ORDERED: predniSONE 5 MG TABLET PO SCH (09:00)
[2019-11-12] MEDS ORDERED: PANTOPRAZOLE 40 MG TABLET PO SCH (09:00)
[2019-11-12] MEDS: glipiZIDE 10 MG TABLET PO SCH (09:14)
[2019-11-12] MEDS: PANTOPRAZOLE 40 MG TABLET PO SCH (09:14)
[2019-11-12] MEDS: buPROPion 75 MG TABLET PO SCH ×2 (09:14→21:26)
[2019-11-12] MEDS: ASPIRIN EC 81 MG TABLET PO SCH (09:14)
[2019-11-12] MEDS: METOPROLOL TARTRATE 100 MG TABLET PO SCH ×2 (09:14→21:26)
[2019-11-12] MEDS: BUDESONIDE/FORMOTEROL 160-4.5 INHALER 6 GM INH SCH (09:16)
[2019-11-12] MEDS: DOCUSATE SODIUM 100 MG CAPSULE PO SCH ×2 (09:16→21:27)
[2019-11-12] MEDS: SODIUM CHLORIDE 0.45% 1,000 ML IV SCH (09:17)
[2019-11-12] MEDS: cefTRIAXone 1,000 MG in SYRINGE 1 EACH IV SCH (16:13)
[2019-11-12] MEDS: methylPREDNISolone SOD SUC 40 MG/1 ML VIAL IV SCH (19:19)
[2019-11-12] MEDS: ONDANSETRON 4 MG/2 ML VIAL IV PRN (19:20)
[2019-11-12] MEDS: KETOROLAC 15 MG/1 ML VIAL IV SCH (19:20)
[2019-11-12] MEDS: POTASSIUM CHLORIDE 20 MEQ TABLET PO SCH (19:28)
[2019-11-12] MEDS: ALBUTEROL/IPRATROPIUM 3 ML NEB RESP TX SCH (19:50)
[2019-11-12] MEDS: BUDESONIDE 0.25 MG/2 ML NEB RESP TX SCH (19:50)
[2019-11-12] MEDS: ENOXAPARIN 40 MG/0.4 ML SYRINGE SUBCUT SCH (21:25)
[2019-11-12] MEDS: CITALOPRAM 20 MG TABLET PO SCH (21:26)
[2019-11-12] MEDS: ATORVASTATIN 40 MG TABLET PO SCH (21:26)
[2019-11-13] MEDS: ALBUTEROL/IPRATROPIUM 3 ML NEB RESP TX SCH ×4 (00:56→20:14)
[2019-11-13] MEDS: KETOROLAC 15 MG/1 ML VIAL IV SCH ×3 (01:16→17:30)
[2019-11-13] MEDS: methylPREDNISolone SOD SUC 40 MG/1 ML VIAL IV SCH ×3 (01:16→17:30)
[2019-11-13] MEDS: traMADol 50 MG TABLET PO PRN (05:22)
[2019-11-13 05:40] LABS: Basophils # 0.1 10*3/uL (0.0-0.2); Basophils % 0.5 % (0.0-0.8); Hematocrit 41.3 VOL% (35.7-47.0); Hemoglobin 13.3 GM/DL (12.0-16.0); Immature Granulocytes % 4.1 %; Immature Granulocytes Absolute 0.45 #; Lymphocytes # 0.9 10*3/uL (1.4-4.0); Lymphocytes % 8.5 % (21.3-54.2); Mean Corpuscular HGB Conc 32.2 GM/DL (32-36); Mean Corpuscular Volume 93.2 FL (87-102); Mean Platelet Volume 9.7 FL (9.6-12.0); Monocytes % 1.1 % (1.7-12.7); Neutrophils % 85.8 % (38.7-73.9); Platelet Count 230 T/CUMM (130-400); Red Blood Count 4.43 MC/CUMM (3.8-5.5); Red Cell Distribution Width 14.2 % (9.3-17.3)
[2019-11-13 06:13] LABS: Albumin 2.9 G/DL (3.4-5.0); Bilirubin,Total 0.5 MG/DL (0.2-1.0); Calcium 8.6 MG/DL (8.5-10.1); Total Protein 6.7 G/DL (6.4-8.3)
[2019-11-13] MEDS ORDERED: cloNIDine 0.1 MG TABLET PO ONE (07:10)
[2019-11-13] MEDS: BUDESONIDE 0.25 MG/2 ML NEB RESP TX SCH ×2 (07:21→20:14)
[2019-11-13] MEDS: ONDANSETRON 4 MG/2 ML VIAL IV PRN (08:42)
[2019-11-13] MEDS: FUROSEMIDE 20 MG/2 ML VIAL IV SCH (08:42)
[2019-11-13] MEDS: SODIUM CHLORIDE 0.45% 1,000 ML IV SCH (08:42)
[2019-11-13] MEDS: INSULIN LISPRO 100 UNIT/ML SUBCUT SCH ×4 (08:42→21:02)
[2019-11-13] MEDS: glipiZIDE 10 MG TABLET PO SCH (08:43)
[2019-11-13] MEDS: PANTOPRAZOLE 40 MG TABLET PO SCH (08:43)
[2019-11-13] MEDS: ASPIRIN EC 81 MG TABLET PO SCH (08:43)
[2019-11-13] MEDS: DOCUSATE SODIUM 100 MG CAPSULE PO SCH ×2 (08:43→20:29)
[2019-11-13] MEDS: METOPROLOL TARTRATE 100 MG TABLET PO SCH ×2 (08:43→20:30)
[2019-11-13] MEDS: buPROPion 75 MG TABLET PO SCH ×2 (08:43→20:29)
[2019-11-13] MEDS: LIDOCAINE 5% PATCH TRANSDERM SCH (08:44)
[2019-11-13] MEDS: MUPIROCIN 2% OINT 22 GM TUBE TOP SCH ×2 (11:15→20:30)
[2019-11-13] MEDS: cloNIDine 0.1 MG TABLET PO SCH ×2 (11:16→20:29)
[2019-11-13] MEDS: cefTRIAXone 1,000 MG in SYRINGE 1 EACH IV SCH (15:33)
[2019-11-13] MEDS: POTASSIUM CHLORIDE 20 MEQ TABLET PO SCH (19:02)
[2019-11-13 19:50] LABS: Apearance,Urine CLEAR (Clear); Bilirubin,Urine Negative (Negative); Blood, Urine Negative (Negative); Glucose,Urine (UA) Negative (Negative); Ketones,Urine Negative (Negative); Mucus,Urine Occasional /LPF (Occasional); Nitrite,Urine Negative (Negative); Protein,Urine Negative; RBC,Urine <1 /HPF (0-4); Squamous Epithelial Cell,Urine Occasional /HPF (0-10); Urine Color Yellow (Yellow); Urine Specific Gravity 1.016 (1.001-1.035); Urine Urobilinogen < 2.0 EU/DL (0.2-1.0); WBC,Urine 4 /HPF (0-6)
[2019-11-13] MEDS: CITALOPRAM 20 MG TABLET PO SCH (20:29)
[2019-11-13] MEDS: ATORVASTATIN 40 MG TABLET PO SCH (20:29)
[2019-11-13] MEDS: ENOXAPARIN 40 MG/0.4 ML SYRINGE SUBCUT SCH (20:30)
[2019-11-14] MEDS: ALBUTEROL/IPRATROPIUM 3 ML NEB RESP TX SCH ×4 (00:22→21:02)
[2019-11-14] MEDS: methylPREDNISolone SOD SUC 40 MG/1 ML VIAL IV SCH ×3 (02:19→17:40)
[2019-11-14] MEDS: KETOROLAC 15 MG/1 ML VIAL IV SCH ×3 (02:22→17:42)
[2019-11-14] MEDS: SODIUM CHLORIDE 0.45% 1,000 ML IV SCH ×2 (03:53→21:17)
[2019-11-14 05:15] LABS: Basophils % 0.3 % (0.0-0.8); Hematocrit 37.7 VOL% (35.7-47.0); Hemoglobin 12.4 GM/DL (12.0-16.0); Immature Granulocytes % 4.4 %; Immature Granulocytes Absolute 0.39 #; Lymphocytes # 1.1 10*3/uL (1.4-4.0); Lymphocytes % 12.6 % (21.3-54.2); Mean Corpuscular HGB Conc 32.9 GM/DL (32-36); Mean Platelet Volume 9.5 FL (9.6-12.0); Monocytes % 3.8 % (1.7-12.7); Neutrophils % 78.9 % (38.7-73.9); Platelet Count 213 T/CUMM (130-400); Red Cell Distribution Width 14.2 % (9.3-17.3); White Blood Count 8.8 T/CUMM (4-12)
[2019-11-14 05:45] LABS: Calcium 8.4 MG/DL (8.5-10.1)
[2019-11-14 05:46] LABS: Osmolality,Calculated 275.1 MOS/KG (273-304)
[2019-11-14] MEDS: BUDESONIDE 0.25 MG/2 ML NEB RESP TX SCH ×2 (07:33→21:02)
[2019-11-14] MEDS: INSULIN LISPRO 100 UNIT/ML SUBCUT SCH ×4 (08:12→21:18)
[2019-11-14] MEDS: cloNIDine 0.1 MG TABLET PO SCH ×2 (09:04→21:09)
[2019-11-14] MEDS: PANTOPRAZOLE 40 MG TABLET PO SCH (09:04)
[2019-11-14] MEDS: buPROPion 75 MG TABLET PO SCH ×2 (09:04→21:10)
[2019-11-14] MEDS: ASPIRIN EC 81 MG TABLET PO SCH (09:04)
[2019-11-14] MEDS: METOPROLOL TARTRATE 100 MG TABLET PO SCH ×2 (09:04→21:10)
[2019-11-14] MEDS: DOCUSATE SODIUM 100 MG CAPSULE PO SCH ×2 (09:04→21:10)
[2019-11-14] MEDS: glipiZIDE 10 MG TABLET PO SCH (09:04)
[2019-11-14] MEDS: LIDOCAINE 5% PATCH TRANSDERM SCH ×2 (09:09→15:42)
[2019-11-14] MEDS: FUROSEMIDE 20 MG/2 ML VIAL IV SCH (09:10)
[2019-11-14] MEDS: SULFAMETHOX/TRIMETHOPRIM 800-160 MG TABLET PO SCH ×2 (12:01→21:10)
[2019-11-14] MEDS: MUPIROCIN 2% OINT 22 GM TUBE TOP SCH ×2 (12:03→21:11)
[2019-11-14] MEDS: traMADol 50 MG TABLET PO PRN ×2 (12:18→21:26)
[2019-11-14] MEDS: DESITIN 4OZ/NYSTATIN 15 GRAM MIXTURE PASTE TOP SCH ×2 (17:42→21:10)
[2019-11-14] MEDS: CITALOPRAM 20 MG TABLET PO SCH (21:09)
[2019-11-14] MEDS: POTASSIUM CHLORIDE 20 MEQ TABLET PO SCH (21:09)
[2019-11-14] MEDS: ATORVASTATIN 40 MG TABLET PO SCH (21:10)
[2019-11-14] MEDS: ENOXAPARIN 40 MG/0.4 ML SYRINGE SUBCUT SCH (21:10)
[2019-11-15] MEDS: ALBUTEROL/IPRATROPIUM 3 ML NEB RESP TX SCH ×4 (00:47→19:30)
[2019-11-15] MEDS: SODIUM CHLORIDE 0.45% 1,000 ML IV SCH ×2 (01:44→21:53)
[2019-11-15] MEDS: methylPREDNISolone SOD SUC 40 MG/1 ML VIAL IV SCH ×3 (02:22→17:06)
[2019-11-15] MEDS: KETOROLAC 15 MG/1 ML VIAL IV SCH ×3 (02:24→17:04)
[2019-11-15 06:15] LABS: Basophils % 0.3 % (0.0-0.8); Hematocrit 38.8 VOL% (35.7-47.0); Hemoglobin 12.8 GM/DL (12.0-16.0); Immature Granulocytes % 2.2 %; Lymphocytes # 0.9 10*3/uL (1.4-4.0); Lymphocytes % 6.8 % (21.3-54.2); Mean Corpuscular Volume 90.7 FL (87-102); Mean Platelet Volume 9.8 FL (9.6-12.0); Monocytes % 5.1 % (1.7-12.7); Neutrophils % 85.6 % (38.7-73.9); Platelet Count 210 T/CUMM (130-400); Red Blood Count 4.28 MC/CUMM (3.8-5.5); Red Cell Distribution Width 14.2 % (9.3-17.3); White Blood Count 13.5 T/CUMM (4-12)
[2019-11-15 06:33] LABS: Calcium 8.5 MG/DL (8.5-10.1)
[2019-11-15] MEDS: BUDESONIDE 0.25 MG/2 ML NEB RESP TX SCH ×2 (07:20→19:30)
[2019-11-15] MEDS: INSULIN LISPRO 100 UNIT/ML SUBCUT SCH ×4 (07:20→21:40)
[2019-11-15] MEDS: glipiZIDE 10 MG TABLET PO SCH (09:02)
[2019-11-15] MEDS: FUROSEMIDE 20 MG/2 ML VIAL IV SCH (09:10)
[2019-11-15] MEDS: buPROPion 75 MG TABLET PO SCH ×2 (11:46→21:39)
[2019-11-15] MEDS: PANTOPRAZOLE 40 MG TABLET PO SCH (11:47)
[2019-11-15] MEDS: cloNIDine 0.1 MG TABLET PO SCH ×2 (11:47→21:40)
[2019-11-15] MEDS: METOPROLOL TARTRATE 100 MG TABLET PO SCH ×2 (11:47→21:39)
[2019-11-15] MEDS: DOCUSATE SODIUM 100 MG CAPSULE PO SCH ×2 (11:47→21:39)
[2019-11-15] MEDS: SULFAMETHOX/TRIMETHOPRIM 800-160 MG TABLET PO SCH ×2 (11:47→21:40)
[2019-11-15] MEDS: ASPIRIN EC 81 MG TABLET PO SCH (11:47)
[2019-11-15] MEDS: LIDOCAINE 5% PATCH TRANSDERM SCH (11:47)
[2019-11-15] MEDS: DESITIN 4OZ/NYSTATIN 15 GRAM MIXTURE PASTE TOP SCH ×2 (12:16→21:42)
[2019-11-15] MEDS: MUPIROCIN 2% OINT 22 GM TUBE TOP SCH ×2 (12:16→21:42)
[2019-11-15] MEDS: traMADol 50 MG TABLET PO PRN ×2 (14:43→21:57)
[2019-11-15] MEDS ORDERED: MAGNESIUM HYDROXIDE SUSP 30 ML UDCUP PO ONE (21:00)
[2019-11-15] MEDS: CITALOPRAM 20 MG TABLET PO SCH (21:38)
[2019-11-15] MEDS: POTASSIUM CHLORIDE 20 MEQ TABLET PO SCH (21:39)
[2019-11-15] MEDS: ENOXAPARIN 40 MG/0.4 ML SYRINGE SUBCUT SCH (21:40)
[2019-11-15] MEDS: ATORVASTATIN 40 MG TABLET PO SCH (21:40)
[2019-11-16] MEDS: ONDANSETRON 4 MG/2 ML VIAL IV PRN ×2 (02:22→09:41)
[2019-11-16] MEDS: methylPREDNISolone SOD SUC 40 MG/1 ML VIAL IV SCH (02:24)
[2019-11-16] MEDS: KETOROLAC 15 MG/1 ML VIAL IV SCH ×2 (02:26→09:41)
[2019-11-16 04:31] LABS: Basophils # 0.1 10*3/uL (0.0-0.2); Basophils % 0.4 % (0.0-0.8); Hematocrit 43.1 VOL% (35.7-47.0); Hemoglobin 14.4 GM/DL (12.0-16.0); Immature Granulocytes % 2.5 %; Lymphocytes # 0.8 10*3/uL (1.4-4.0); Mean Corpuscular HGB Conc 33.4 GM/DL (32-36); Mean Corpuscular Volume 90.9 FL (87-102); Mean Platelet Volume 9.1 FL (9.6-12.0); Monocytes % 4.6 % (1.7-12.7); Neutrophils % 88.5 % (38.7-73.9); Platelet Count 238 T/CUMM (130-400); Red Blood Count 4.74 MC/CUMM (3.8-5.5); Red Cell Distribution Width 14.4 % (9.3-17.3); White Blood Count 20.1 T/CUMM (4-12)
[2019-11-16 04:56] LABS: Hypochromasia 1+; Lymphocytes 4 % (20-55); Ovalocytes Slight; Platelet Estimate Adequate; Segmented Neutrophils 93 % (50-85); Total Cells Counted 100
[2019-11-16 05:06] LABS: Calcium 8.8 MG/DL (8.5-10.1); Osmolality,Calculated 282.8 MOS/KG (273-304)
[2019-11-16] MEDS: ALBUTEROL/IPRATROPIUM 3 ML NEB RESP TX SCH ×4 (08:08→15:22)
[2019-11-16] MEDS: BUDESONIDE 0.25 MG/2 ML NEB RESP TX SCH (08:08)
[2019-11-16] MEDS ORDERED: BISACODYL 5 MG TABLET PO PRN (08:30)
[2019-11-16] MEDS: FUROSEMIDE 20 MG/2 ML VIAL IV SCH (09:41)
[2019-11-16] MEDS: METOPROLOL TARTRATE 100 MG TABLET PO SCH (09:42)
[2019-11-16] MEDS: buPROPion 75 MG TABLET PO SCH (09:42)
[2019-11-16] MEDS: glipiZIDE 10 MG TABLET PO SCH (09:42)
[2019-11-16] MEDS: ASPIRIN EC 81 MG TABLET PO SCH (09:42)
[2019-11-16] MEDS: SULFAMETHOX/TRIMETHOPRIM 800-160 MG TABLET PO SCH (09:42)
[2019-11-16] MEDS: cloNIDine 0.1 MG TABLET PO SCH (09:43)
[2019-11-16] MEDS: DESITIN 4OZ/NYSTATIN 15 GRAM MIXTURE PASTE TOP SCH (09:43)
[2019-11-16] MEDS: PANTOPRAZOLE 40 MG TABLET PO SCH (09:43)
[2019-11-16] MEDS: MUPIROCIN 2% OINT 22 GM TUBE TOP SCH (09:43)
[2019-11-16] MEDS: DOCUSATE SODIUM 100 MG CAPSULE PO SCH (09:43)
[2019-11-16] MEDS: INSULIN LISPRO 100 UNIT/ML SUBCUT SCH ×2 (09:43→12:30)
[2019-11-16] MEDS: LIDOCAINE 5% PATCH TRANSDERM SCH (09:43)
[2019-11-16 16:03] VITALS: BP 138/79
== END 2019-11-16 16:28 | disposition swing bed (61) | DRG 184 ==
LOC: EDUNIT# → EDBD → N.ED 05:54 → N.EDINP 10:37 → N.2E 11:23
PROVIDERS: ADMIT Family Medicine; ATTEND Family Medicine

== ENCOUNTER 2019-11-19 18:12 | Observation (INO) ==
[2019-11-19] MEDS ORDERED: SODIUM CHLORIDE 0.9% 1,000 ML IV STA (18:40)
[2019-11-19 20:19] LABS: Basophils % 0.2 % (0.0-0.8); Hematocrit 43.5 VOL% (35.7-47.0); Immature Granulocytes % 1.6 %; Immature Granulocytes Absolute 0.29 #; Lymphocytes # 1.2 10*3/uL (1.4-4.0); Lymphocytes % 6.7 % (21.3-54.2); Mean Corpuscular HGB Conc 32.2 GM/DL (32-36); Mean Corpuscular Volume 94.8 FL (87-102); Mean Platelet Volume 9.9 FL (9.6-12.0); Monocytes % 8.1 % (1.7-12.7); Neutrophils % 83.4 % (38.7-73.9); Platelet Count 231 T/CUMM (130-400); Red Blood Count 4.59 MC/CUMM (3.8-5.5); White Blood Count 17.9 T/CUMM (4-12)
[2019-11-19 20:27] LABS: INR 1.1; PT Patient Result 12.1 SECS (9.6-12.2)
[2019-11-19 20:35] LABS: Calcium 8.3 MG/DL (8.5-10.1); Osmolality,Calculated 293.4 MOS/KG (273-304); Total Protein 5.8 G/DL (6.4-8.3)
[2019-11-19] MEDS ORDERED: ONDANSETRON 4 MG/2 ML VIAL IV PRN (23:40)
[2019-11-19] MEDS ORDERED: ACETAMINOPHEN 325 MG TABLET PO PRN (23:40)
[2019-11-19] MEDS: SODIUM CHLORIDE 0.9% 1,000 ML IV SCH (23:50)
[2019-11-20 00:03] LABS: Basophils % 0.1 % (0.0-0.8); Eosinophils % 0.1 % (0.00-10.9); Hematocrit 38.2 VOL% (35.7-47.0); Hemoglobin 12.2 GM/DL (12.0-16.0); Immature Granulocytes % 1.4 %; Immature Granulocytes Absolute 0.22 #; Lymphocytes # 1.1 10*3/uL (1.4-4.0); Lymphocytes % 6.9 % (21.3-54.2); Mean Corpuscular HGB Conc 31.9 GM/DL (32-36); Mean Corpuscular Volume 94.6 FL (87-102); Monocytes % 8.4 % (1.7-12.7); Neutrophils % 83.1 % (38.7-73.9); Platelet Count 208 T/CUMM (130-400); Red Blood Count 4.04 MC/CUMM (3.8-5.5); White Blood Count 15.5 T/CUMM (4-12)
[2019-11-20 00:25] LABS: Albumin 2.6 G/DL (3.4-5.0); Calcium 7.8 MG/DL (8.5-10.1); Osmolality,Calculated 293.3 MOS/KG (273-304); Total Protein 5.3 G/DL (6.4-8.3)
[2019-11-20 06:23] LABS: Apearance,Urine Slightly Hazy (Clear); Bacteria,Urine Occasional /HPF (Few); Bilirubin,Urine Negative (Negative); Blood, Urine Moderate mg/dL (Negative); Glucose,Urine (UA) Negative (Negative); Hyaline Casts,Urine 3 /LPF (0-3); Ketones,Urine 5 mg/dL (Negative); Mucus,Urine Occasional /LPF (Occasional); Nitrite,Urine Negative (Negative); Protein,Urine Negative; RBC,Urine 58 /HPF (0-4); Urine Color Yellow (Yellow); Urine Urobilinogen < 2.0 EU/DL (0.2-1.0); WBC,Urine 94 /HPF (0-6)
[2019-11-20] MEDS ORDERED: CLORAZEPATE 7.5 MG TABLET PO PRN (09:22)
[2019-11-20] MEDS ORDERED: FUROSEMIDE 20 MG TABLET PO PRN (09:55)
[2019-11-20] MEDS ORDERED: DOCUSATE/SENNA 50-8.6 MG TABLET PO PRN (09:55)
[2019-11-20] MEDS: PANTOPRAZOLE 40 MG TABLET PO SCH (10:10)
[2019-11-20] MEDS: cefTRIAXone 1,000 MG in SYRINGE 1 EACH IV SCH (10:10)
[2019-11-20] MEDS: SODIUM CHLORIDE 0.9% 1,000 ML IV SCH (16:31)
[2019-11-20] MEDS: ATORVASTATIN 40 MG TABLET PO SCH (21:04)
[2019-11-20] MEDS: CITALOPRAM 20 MG TABLET PO SCH (21:04)
[2019-11-20] MEDS: buPROPion 75 MG TABLET PO SCH (21:04)
[2019-11-20] MEDS: GENTAMICIN 0.1% CREAM 15 GM TUBE TOP SCH (21:05)
[2019-11-20] MEDS: BUDESONIDE/FORMOTEROL 160-4.5 INHALER 6 GM INH SCH (21:06)
[2019-11-20] MEDS: MUPIROCIN 2% OINT 22 GM TUBE TOP SCH (21:06)
[2019-11-20] MEDS: METOPROLOL TARTRATE 100 MG TABLET PO SCH (21:10)
[2019-11-20] MEDS: POTASSIUM CHLORIDE 20 MEQ TABLET PO SCH (21:11)
[2019-11-21] MEDS: SODIUM CHLORIDE 0.9% 1,000 ML IV SCH ×3 (02:47→21:27)
[2019-11-21] MEDS: traMADol 50 MG TABLET PO PRN ×4 (04:43→21:23)
[2019-11-21 08:46] LABS: Basophils % 0.2 % (0.0-0.8); Eosinophils # 0.1 10*3/uL (0.0-0.87); Eosinophils % 0.9 % (0.00-10.9); Hematocrit 36.6 VOL% (35.7-47.0); Hemoglobin 11.5 GM/DL (12.0-16.0); Immature Granulocytes % 1.4 %; Immature Granulocytes Absolute 0.16 #; Lymphocytes # 1.8 10*3/uL (1.4-4.0); Lymphocytes % 15.1 % (21.3-54.2); Mean Corpuscular HGB Conc 31.4 GM/DL (32-36); Mean Corpuscular Volume 96.6 FL (87-102); Monocytes % 6.8 % (1.7-12.7); Neutrophils % 75.6 % (38.7-73.9); Platelet Count 182 T/CUMM (130-400); Red Blood Count 3.79 MC/CUMM (3.8-5.5); Red Cell Distribution Width 14.3 % (9.3-17.3); White Blood Count 11.7 T/CUMM (4-12)
[2019-11-21] MEDS: glipiZIDE 10 MG TABLET PO SCH (08:53)
[2019-11-21] MEDS: buPROPion 75 MG TABLET PO SCH ×2 (08:53→21:45)
[2019-11-21] MEDS: BUDESONIDE/FORMOTEROL 160-4.5 INHALER 6 GM INH SCH ×2 (08:53→21:46)
[2019-11-21] MEDS: cefTRIAXone 1,000 MG in SYRINGE 1 EACH IV SCH (08:54)
[2019-11-21] MEDS: MUPIROCIN 2% OINT 22 GM TUBE TOP SCH ×2 (08:54→21:22)
[2019-11-21] MEDS: ASPIRIN EC 81 MG TABLET PO SCH (08:54)
[2019-11-21] MEDS: POTASSIUM CHLORIDE 20 MEQ TABLET PO SCH ×2 (08:54→21:24)
[2019-11-21] MEDS: METOPROLOL TARTRATE 100 MG TABLET PO SCH ×2 (08:54→21:24)
[2019-11-21] MEDS: GENTAMICIN 0.1% CREAM 15 GM TUBE TOP SCH ×2 (08:54→21:22)
[2019-11-21] MEDS: PANTOPRAZOLE 40 MG TABLET PO SCH (08:55)
[2019-11-21] MEDS ORDERED: NICOTINE 14 MG/24 HR PATCH TRANSDERM SCH (09:00)
[2019-11-21] MEDS ORDERED: PANTOPRAZOLE 40 MG TABLET PO SCH (09:00)
[2019-11-21 09:06] LABS: Albumin 2.2 G/DL (3.4-5.0); Bilirubin,Total 0.6 MG/DL (0.2-1.0); Calcium 7.9 MG/DL (8.5-10.1); Osmolality,Calculated 278.5 MOS/KG (273-304); Total Protein 4.9 G/DL (6.4-8.3)
[2019-11-21] MEDS: LIDOCAINE 5% PATCH TRANSDERM SCH (09:24)
[2019-11-21] MEDS: CITALOPRAM 20 MG TABLET PO SCH (21:23)
[2019-11-21] MEDS: ATORVASTATIN 40 MG TABLET PO SCH (21:23)
[2019-11-22] MEDS: traMADol 50 MG TABLET PO PRN (04:34)
[2019-11-22] MEDS: SODIUM CHLORIDE 0.9% 1,000 ML IV SCH ×3 (05:32→21:00)
[2019-11-22 06:17] LABS: Albumin 1.9 G/DL (3.4-5.0); Bilirubin,Total 0.4 MG/DL (0.2-1.0); Calcium 7.4 MG/DL (8.5-10.1); Osmolality,Calculated 277.5 MOS/KG (273-304); Thyroid Stimulating Hormone 0.745 uIU/ml (0.358-3.74); Total Protein 4.7 G/DL (6.4-8.3)
[2019-11-22 06:17] LABS: Basophils % 0.1 % (0.0-0.8); Eosinophils # 0.2 10*3/uL (0.0-0.87); Eosinophils % 1.8 % (0.00-10.9); Hematocrit 31.5 VOL% (35.7-47.0); Hemoglobin 10.1 GM/DL (12.0-16.0); Immature Granulocytes % 1.3 %; Immature Granulocytes Absolute 0.12 #; Lymphocytes # 1.3 10*3/uL (1.4-4.0); Lymphocytes % 14.2 % (21.3-54.2); Mean Corpuscular HGB Conc 32.1 GM/DL (32-36); Mean Corpuscular Volume 95.2 FL (87-102); Mean Platelet Volume 9.8 FL (9.6-12.0); Monocytes % 6.1 % (1.7-12.7); Neutrophils % 76.5 % (38.7-73.9); Platelet Count 151 T/CUMM (130-400); Red Blood Count 3.31 MC/CUMM (3.8-5.5); Red Cell Distribution Width 14.1 % (9.3-17.3)
[2019-11-22 06:20] LABS: Anisocytosis 1+; Platelet Estimate Normal
[2019-11-22 06:21] LABS: Macrocytosis 1+
[2019-11-22] MEDS: BUDESONIDE/FORMOTEROL 160-4.5 INHALER 6 GM INH SCH ×2 (09:01→22:30)
[2019-11-22] MEDS: cefTRIAXone 1,000 MG in SYRINGE 1 EACH IV SCH (09:01)
[2019-11-22] MEDS: glipiZIDE 10 MG TABLET PO SCH (09:02)
[2019-11-22] MEDS: METOPROLOL TARTRATE 100 MG TABLET PO SCH ×2 (09:02→22:30)
[2019-11-22] MEDS: ASPIRIN EC 81 MG TABLET PO SCH (09:02)
[2019-11-22] MEDS: POTASSIUM CHLORIDE 20 MEQ TABLET PO SCH ×2 (09:02→22:30)
[2019-11-22] MEDS: buPROPion 75 MG TABLET PO SCH ×2 (09:02→22:30)
[2019-11-22] MEDS: PANTOPRAZOLE 40 MG TABLET PO SCH (09:02)
[2019-11-22] MEDS: NICOTINE 21 MG/24 HR PATCH TRANSDERM SCH (09:06)
[2019-11-22] MEDS: LIDOCAINE 5% PATCH TRANSDERM SCH (09:06)
[2019-11-22] MEDS: MUPIROCIN 2% OINT 22 GM TUBE TOP SCH ×2 (09:58→22:33)
[2019-11-22] MEDS: GENTAMICIN 0.1% CREAM 15 GM TUBE TOP SCH ×2 (09:58→22:33)
[2019-11-22] MEDS ORDERED: TUBERCULIN SKIN TEST 0.1 ML SYRINGE INTRADERM ONE (11:14)
[2019-11-22] MEDS: ATORVASTATIN 40 MG TABLET PO SCH (22:29)
[2019-11-22] MEDS: CITALOPRAM 20 MG TABLET PO SCH (22:29)
[2019-11-23] MEDS: traMADol 50 MG TABLET PO PRN (03:52)
[2019-11-23 05:51] LABS: Basophils # 0.1 10*3/uL (0.0-0.2); Basophils % 0.3 % (0.0-0.8); Eosinophils # 0.2 10*3/uL (0.0-0.87); Eosinophils % 1.2 % (0.00-10.9); Hematocrit 38.6 VOL% (35.7-47.0); Hemoglobin 12.3 GM/DL (12.0-16.0); Immature Granulocytes % 1.4 %; Lymphocytes # 1.4 10*3/uL (1.4-4.0); Lymphocytes % 9.6 % (21.3-54.2); Mean Corpuscular HGB Conc 31.9 GM/DL (32-36); Mean Corpuscular Volume 94.6 FL (87-102); Mean Platelet Volume 10.3 FL (9.6-12.0); Monocytes % 4.8 % (1.7-12.7); Neutrophils % 82.7 % (38.7-73.9); Platelet Count 206 T/CUMM (130-400); Red Blood Count 4.08 MC/CUMM (3.8-5.5); Red Cell Distribution Width 13.7 % (9.3-17.3); White Blood Count 14.5 T/CUMM (4-12)
[2019-11-23 06:05] LABS: Calcium 8.5 MG/DL (8.5-10.1); Osmolality,Calculated 271.7 MOS/KG (273-304)
[2019-11-23] MEDS ORDERED: SULFAMETHOX/TRIMETHOPRIM 800-160 MG TABLET PO SCH (09:00)
[2019-11-23] MEDS: NICOTINE 21 MG/24 HR PATCH TRANSDERM SCH (09:36)
[2019-11-23] MEDS: buPROPion 75 MG TABLET PO SCH (09:37)
[2019-11-23] MEDS: METOPROLOL TARTRATE 100 MG TABLET PO SCH (09:37)
[2019-11-23] MEDS: glipiZIDE 10 MG TABLET PO SCH (09:37)
[2019-11-23] MEDS: ASPIRIN EC 81 MG TABLET PO SCH (09:37)
[2019-11-23] MEDS: POTASSIUM CHLORIDE 20 MEQ TABLET PO SCH (09:37)
[2019-11-23] MEDS: PANTOPRAZOLE 40 MG TABLET PO SCH (09:38)
[2019-11-23] MEDS: LIDOCAINE 5% PATCH TRANSDERM SCH (09:38)
[2019-11-23] MEDS: cefTRIAXone 1,000 MG in SYRINGE 1 EACH IV SCH (09:38)
[2019-11-23] MEDS: GENTAMICIN 0.1% CREAM 15 GM TUBE TOP SCH (09:42)
[2019-11-23] MEDS: MUPIROCIN 2% OINT 22 GM TUBE TOP SCH (09:42)
[2019-11-23] MEDS: BUDESONIDE/FORMOTEROL 160-4.5 INHALER 6 GM INH SCH (09:43)
[2019-11-23 11:56] VITALS: BP 158/73
== END 2019-11-23 11:55 | disposition swing bed (61) ==
LOC: EDBD → EDUNIT# → N.EDINP 18:12 → N.ED 18:12 → N.2E 22:56
PROVIDERS: ADMIT Family Medicine; ATTEND Family Medicine

== ENCOUNTER 2019-12-28 17:57 | Inpatient (IN) ==
[2019-12-28] MEDS ORDERED: KETOROLAC 30 MG/1 ML VIAL IV STA (18:18)
[2019-12-28] MEDS ORDERED: ONDANSETRON 4 MG/2 ML VIAL IV STA (18:18)
[2019-12-28] MEDS ORDERED: ORPHENADRINE 60 MG/2 ML VIAL IV STA (18:22)
[2019-12-28 19:32] LABS: Basophils % 0.2 % (0.0-0.8); Eosinophils % 0.1 % (0.00-10.9); Hematocrit 40.6 VOL% (35.7-47.0); Hemoglobin 12.9 GM/DL (12.0-16.0); Immature Granulocytes % 0.4 %; Immature Granulocytes Absolute 0.04 #; Lymphocytes # 0.8 10*3/uL (1.4-4.0); Lymphocytes % 9.2 % (21.3-54.2); Mean Corpuscular HGB Conc 31.8 GM/DL (32-36); Mean Corpuscular Volume 97.6 FL (87-102); Mean Platelet Volume 9.7 FL (9.6-12.0); Monocytes % 5.4 % (1.7-12.7); Neutrophils % 84.7 % (38.7-73.9); Platelet Count 181 T/CUMM (130-400); Red Blood Count 4.16 MC/CUMM (3.8-5.5); Red Cell Distribution Width 14.1 % (9.3-17.3)
[2019-12-28 19:43] LABS: PT Patient Result 10.8 SECS (9.6-12.2); Partial Thromboplastin Time 21.6 SECS (20.8-36.0)
[2019-12-28 19:55] LABS: Alanine Aminotransferase 22 U/L (13-56); Albumin 3.5 G/DL (3.4-5.0); Alkaline Phosphatase 104 U/L (45-117); Aspartate Amino Transferase 25 U/L (0-37); Blood Urea Nitrogen 9 MG/DL (7-18); Calcium 9.3 MG/DL (8.5-10.1); Estimated Glom Filtration Rate 74 ML/MIN; Glucose 120 MG/DL (74-106); Osmolality,Calculated 280.3 MOS/KG (273-304); Troponin I < 0.015 NG/ML (0.00-0.045)
[2019-12-28] MEDS ORDERED: GLUCAGON 1 MG VIAL IM PRN (21:14)
[2019-12-28] MEDS ORDERED: DEXTROSE 50% 25 GM/50 ML SYRINGE IV PRN (21:14)
[2019-12-28] MEDS ORDERED: ONDANSETRON 4 MG/2 ML VIAL IV PRN (21:14)
[2019-12-28] MEDS ORDERED: CLORAZEPATE 7.5 MG TABLET PO PRN (22:07)
[2019-12-28] MEDS: SODIUM CHLORIDE 0.9% 1,000 ML IV SCH (23:38)
[2019-12-29] MEDS: INSULIN REGULAR 100 UNIT/ML SUBCUT SCH ×5 (00:40→21:36)
[2019-12-29] MEDS: traMADol 50 MG TABLET PO PRN ×2 (05:43→21:40)
[2019-12-29] MEDS: SODIUM CHLORIDE 0.9% 1,000 ML IV SCH ×2 (06:49→18:34)
[2019-12-29] MEDS: PANTOPRAZOLE 40 MG TABLET PO SCH (09:59)
[2019-12-29] MEDS: glipiZIDE 10 MG TABLET PO SCH (09:59)
[2019-12-29] MEDS: buPROPion 75 MG TABLET PO SCH ×2 (09:59→21:38)
[2019-12-29] MEDS: ASPIRIN EC 81 MG TABLET PO SCH (09:59)
[2019-12-29] MEDS: METOPROLOL TARTRATE 100 MG TABLET PO SCH ×2 (09:59→21:38)
[2019-12-29] MEDS: LIDOCAINE 5% PATCH TRANSDERM SCH (10:00)
[2019-12-29] MEDS: BUDESONIDE/FORMOTEROL 160-4.5 INHALER 6 GM INH SCH ×2 (10:01→21:38)
[2019-12-29] MEDS: MUPIROCIN 2% OINT 22 GM TUBE TOP SCH ×2 (10:01→21:38)
[2019-12-29] MEDS: DESITIN 4OZ/NYSTATIN 15 GRAM MIXTURE PASTE TOP SCH ×2 (12:00→21:39)
[2019-12-29] MEDS: SODIUM CHLOR 0.9% KCL 20 MEQ 20 MEQ/1,000 ML BAG IV SCH (18:33)
[2019-12-29] MEDS: DOCUSATE/SENNA 50-8.6 MG TABLET PO SCH (21:37)
[2019-12-29] MEDS: CITALOPRAM 20 MG TABLET PO SCH (21:38)
[2019-12-29] MEDS: ATORVASTATIN 40 MG TABLET PO SCH (21:38)
[2019-12-30] MEDS: SODIUM CHLOR 0.9% KCL 20 MEQ 20 MEQ/1,000 ML BAG IV SCH ×3 (02:22→23:48)
[2019-12-30] MEDS: traMADol 50 MG TABLET PO PRN ×2 (03:36→16:32)
[2019-12-30 05:43] LABS: Basophils % 0.4 % (0.0-0.8); Eosinophils # 0.2 10*3/uL (0.0-0.87); Eosinophils % 3.9 % (0.00-10.9); Hematocrit 33.1 VOL% (35.7-47.0); Hemoglobin 10.3 GM/DL (12.0-16.0); Immature Granulocytes % 0.6 %; Immature Granulocytes Absolute 0.03 #; Lymphocytes # 1.1 10*3/uL (1.4-4.0); Lymphocytes % 19.9 % (21.3-54.2); Mean Corpuscular HGB Conc 31.1 GM/DL (32-36); Mean Corpuscular Volume 98.2 FL (87-102); Mean Platelet Volume 9.8 FL (9.6-12.0); Monocytes % 6.4 % (1.7-12.7); Neutrophils % 68.8 % (38.7-73.9); Platelet Count 138 T/CUMM (130-400); Red Blood Count 3.37 MC/CUMM (3.8-5.5); White Blood Count 5.3 T/CUMM (4-12)
[2019-12-30 06:25] LABS: Albumin 2.3 G/DL (3.4-5.0); Calcium 8.5 MG/DL (8.5-10.1); Osmolality,Calculated 280.1 MOS/KG (273-304); Total Protein 5.5 G/DL (6.4-8.3)
[2019-12-30 06:45] LABS: Apearance,Urine CLEAR (Clear); Bacteria,Urine Occasional /HPF (Few); Bilirubin,Urine Negative (Negative); Blood, Urine Negative (Negative); Glucose,Urine (UA) Negative (Negative); Hyaline Casts,Urine 4 /LPF (0-3); Ketones,Urine Negative (Negative); Mucus,Urine Occasional /LPF (Occasional); Nitrite,Urine Negative (Negative); Protein,Urine Negative; RBC,Urine 3 /HPF (0-4); Squamous Epithelial Cell,Urine Few /HPF (0-10); Urine Color Yellow (Yellow); Urine Urobilinogen < 2.0 EU/DL (0.2-1.0); WBC,Urine 10 /HPF (0-6)
[2019-12-30] MEDS: INSULIN REGULAR 100 UNIT/ML SUBCUT SCH ×4 (09:10→22:46)
[2019-12-30] MEDS: LIDOCAINE 5% PATCH TRANSDERM SCH (09:41)
[2019-12-30] MEDS: PANTOPRAZOLE 40 MG TABLET PO SCH (09:46)
[2019-12-30] MEDS: buPROPion 75 MG TABLET PO SCH ×2 (09:46→22:45)
[2019-12-30] MEDS: ASPIRIN EC 81 MG TABLET PO SCH (09:46)
[2019-12-30] MEDS: glipiZIDE 10 MG TABLET PO SCH (09:46)
[2019-12-30] MEDS: METOPROLOL TARTRATE 100 MG TABLET PO SCH ×2 (09:46→22:44)
[2019-12-30] MEDS: MUPIROCIN 2% OINT 22 GM TUBE TOP SCH ×2 (09:47→22:46)
[2019-12-30] MEDS: BUDESONIDE/FORMOTEROL 160-4.5 INHALER 6 GM INH SCH ×2 (09:48→22:45)
[2019-12-30] MEDS: DESITIN 4OZ/NYSTATIN 15 GRAM MIXTURE PASTE TOP SCH ×2 (09:48→22:45)
[2019-12-30] MEDS: CITALOPRAM 20 MG TABLET PO SCH (22:41)
[2019-12-30] MEDS: ATORVASTATIN 40 MG TABLET PO SCH (22:44)
[2019-12-30] MEDS: DOCUSATE/SENNA 50-8.6 MG TABLET PO SCH (22:45)
[2019-12-31 05:18] LABS: Basophils % 0.4 % (0.0-0.8); Eosinophils # 0.2 10*3/uL (0.0-0.87); Eosinophils % 4.3 % (0.00-10.9); Hematocrit 33.9 VOL% (35.7-47.0); Hemoglobin 10.4 GM/DL (12.0-16.0); Immature Granulocytes % 0.4 %; Immature Granulocytes Absolute 0.02 #; Lymphocytes # 1.1 10*3/uL (1.4-4.0); Lymphocytes % 21.2 % (21.3-54.2); Mean Corpuscular HGB Conc 30.7 GM/DL (32-36); Mean Corpuscular Volume 99.1 FL (87-102); Mean Platelet Volume 9.6 FL (9.6-12.0); Monocytes % 7.4 % (1.7-12.7); Neutrophils % 66.3 % (38.7-73.9); Platelet Count 135 T/CUMM (130-400); Red Blood Count 3.42 MC/CUMM (3.8-5.5); Red Cell Distribution Width 13.6 % (9.3-17.3); White Blood Count 5.2 T/CUMM (4-12)
[2019-12-31 05:54] LABS: Calcium 8.4 MG/DL (8.5-10.1); Osmolality,Calculated 275.4 MOS/KG (273-304)
[2019-12-31] MEDS: METOPROLOL TARTRATE 100 MG TABLET PO SCH ×2 (08:21→21:10)
[2019-12-31] MEDS: SODIUM CHLOR 0.9% KCL 20 MEQ 20 MEQ/1,000 ML BAG IV SCH ×2 (08:22→08:23)
[2019-12-31] MEDS: traMADol 50 MG TABLET PO PRN (08:22)
[2019-12-31] MEDS: ASPIRIN EC 81 MG TABLET PO SCH (08:22)
[2019-12-31] MEDS: buPROPion 75 MG TABLET PO SCH ×2 (08:22→21:10)
[2019-12-31] MEDS: glipiZIDE 10 MG TABLET PO SCH (08:22)
[2019-12-31] MEDS: PANTOPRAZOLE 40 MG TABLET PO SCH (08:22)
[2019-12-31] MEDS: LIDOCAINE 5% PATCH TRANSDERM SCH (08:22)
[2019-12-31] MEDS: BUDESONIDE/FORMOTEROL 160-4.5 INHALER 6 GM INH SCH ×2 (08:23→21:09)
[2019-12-31] MEDS: INSULIN REGULAR 100 UNIT/ML SUBCUT SCH ×4 (08:23→21:11)
[2019-12-31] MEDS: MUPIROCIN 2% OINT 22 GM TUBE TOP SCH ×2 (09:55→21:13)
[2019-12-31] MEDS: DESITIN 4OZ/NYSTATIN 15 GRAM MIXTURE PASTE TOP SCH ×2 (09:55→21:16)
[2019-12-31] MEDS: DOCUSATE/SENNA 50-8.6 MG TABLET PO SCH (21:10)
[2019-12-31] MEDS: CITALOPRAM 20 MG TABLET PO SCH (21:10)
[2019-12-31] MEDS: ATORVASTATIN 40 MG TABLET PO SCH (21:10)
[2020-01-01] MEDS: SODIUM CHLOR 0.9% KCL 20 MEQ 20 MEQ/1,000 ML BAG IV SCH ×3 (05:19→11:45)
[2020-01-01] MEDS: traMADol 50 MG TABLET PO PRN ×2 (05:20→13:36)
[2020-01-01 05:45] LABS: Calcium 8.6 MG/DL (8.5-10.1)
[2020-01-01] MEDS: INSULIN REGULAR 100 UNIT/ML SUBCUT SCH ×4 (08:13→21:05)
[2020-01-01] MEDS: PANTOPRAZOLE 40 MG TABLET PO SCH (08:15)
[2020-01-01] MEDS: ASPIRIN EC 81 MG TABLET PO SCH (08:15)
[2020-01-01] MEDS: DESITIN 4OZ/NYSTATIN 15 GRAM MIXTURE PASTE TOP SCH ×2 (08:15→21:04)
[2020-01-01] MEDS: glipiZIDE 10 MG TABLET PO SCH (08:15)
[2020-01-01] MEDS: buPROPion 75 MG TABLET PO SCH ×2 (08:15→21:01)
[2020-01-01] MEDS: LIDOCAINE 5% PATCH TRANSDERM SCH (08:15)
[2020-01-01] MEDS: MUPIROCIN 2% OINT 22 GM TUBE TOP SCH ×2 (08:15→21:04)
[2020-01-01] MEDS: METOPROLOL TARTRATE 100 MG TABLET PO SCH ×2 (08:15→21:01)
[2020-01-01] MEDS: BUDESONIDE/FORMOTEROL 160-4.5 INHALER 6 GM INH SCH ×2 (08:15→21:04)
[2020-01-01] MEDS ORDERED: LINACLOTIDE 145 MCG CAPSULE PO ONE (10:37)
[2020-01-01] MEDS ORDERED: NICOTINE 21 MG/24 HR PATCH TRANSDERM PRN (13:20)
[2020-01-01] MEDS: ATORVASTATIN 40 MG TABLET PO SCH (21:01)
[2020-01-01] MEDS: DOCUSATE/SENNA 50-8.6 MG TABLET PO SCH (21:01)
[2020-01-01] MEDS: CITALOPRAM 20 MG TABLET PO SCH (21:01)
[2020-01-02] MEDS: SODIUM CHLOR 0.9% KCL 20 MEQ 20 MEQ/1,000 ML BAG IV SCH ×2 (07:30→21:58)
[2020-01-02] MEDS: glipiZIDE 10 MG TABLET PO SCH (07:30)
[2020-01-02] MEDS: INSULIN REGULAR 100 UNIT/ML SUBCUT SCH ×4 (08:15→21:52)
[2020-01-02] MEDS: buPROPion 75 MG TABLET PO SCH ×2 (09:00→21:50)
[2020-01-02] MEDS: LIDOCAINE 5% PATCH TRANSDERM SCH (09:00)
[2020-01-02] MEDS: MUPIROCIN 2% OINT 22 GM TUBE TOP SCH ×2 (09:02→21:51)
[2020-01-02] MEDS: DESITIN 4OZ/NYSTATIN 15 GRAM MIXTURE PASTE TOP SCH ×2 (09:03→21:51)
[2020-01-02] MEDS: METOPROLOL TARTRATE 100 MG TABLET PO SCH ×2 (09:09→21:51)
[2020-01-02] MEDS: BUDESONIDE/FORMOTEROL 160-4.5 INHALER 6 GM INH SCH ×2 (09:13→21:51)
[2020-01-02] MEDS ORDERED: TISSUE ADHESIVE 1 EACH APPLICATOR TOP ONE (11:15)
[2020-01-02] MEDS ORDERED: ROPIVACAINE 0.5% 30 ML VIAL ONE (11:15)
[2020-01-02] MEDS ORDERED: ALBUTEROL INHALER 8 GM INH ONE (11:41)
[2020-01-02] MEDS ORDERED: ALBUTEROL/IPRATROPIUM 3 ML NEB RESP TX ONE (12:36)
[2020-01-02] MEDS ORDERED: LIDOCAINE 2% 5 ML VIAL ONE (12:39)
[2020-01-02] MEDS ORDERED: KETAMINE 500 MG/10 ML VIAL ONE (12:39)
[2020-01-02] MEDS ORDERED: propofoL 200 MG/20 ML VIAL IV ONE (12:39)
[2020-01-02] MEDS ORDERED: MIDAZOLAM 2 MG/2 ML VIAL ONE (12:40)
[2020-01-02] MEDS ORDERED: fentaNYL 100 MCG/2 ML VIAL ONE (12:40)
[2020-01-02] MEDS: ALBUTEROL/IPRATROPIUM 3 ML NEB RESP TX ONE ×2 (12:40→12:59)
[2020-01-02] MEDS ORDERED: TUBERCULIN SKIN TEST 0.1 ML SYRINGE INTRADERM ONE (15:02)
[2020-01-02] MEDS: PANTOPRAZOLE 40 MG TABLET PO SCH (16:33)
[2020-01-02] MEDS: ASPIRIN EC 81 MG TABLET PO SCH (16:33)
[2020-01-02] MEDS: DOCUSATE SODIUM 100 MG CAPSULE PO SCH (16:34)
[2020-01-02] MEDS ORDERED: GLUCAGON 1 MG VIAL IM PRN (16:46)
[2020-01-02] MEDS ORDERED: DEXTROSE 10% 250 ML BAG IV PRN (16:46)
[2020-01-02] MEDS: DOCUSATE/SENNA 50-8.6 MG TABLET PO SCH (21:49)
[2020-01-02] MEDS: ATORVASTATIN 40 MG TABLET PO SCH (21:50)
[2020-01-02] MEDS: CITALOPRAM 20 MG TABLET PO SCH (21:50)
[2020-01-03 05:38] LABS: Basophils % 0.3 % (0.0-0.8); Eosinophils # 0.1 10*3/uL (0.0-0.87); Eosinophils % 1.9 % (0.00-10.9); Hematocrit 34.4 VOL% (35.7-47.0); Hemoglobin 10.7 GM/DL (12.0-16.0); Immature Granulocytes % 0.5 %; Immature Granulocytes Absolute 0.03 #; Lymphocytes # 0.8 10*3/uL (1.4-4.0); Lymphocytes % 13.3 % (21.3-54.2); Mean Corpuscular HGB Conc 31.1 GM/DL (32-36); Mean Corpuscular Volume 98.3 FL (87-102); Mean Platelet Volume 9.8 FL (9.6-12.0); Monocytes % 7.8 % (1.7-12.7); Neutrophils % 76.2 % (38.7-73.9); Platelet Count 155 T/CUMM (130-400); Red Cell Distribution Width 13.5 % (9.3-17.3); White Blood Count 5.9 T/CUMM (4-12)
[2020-01-03 05:47] LABS: Calcium 9.3 MG/DL (8.5-10.1); Osmolality,Calculated 272.7 MOS/KG (273-304)
[2020-01-03] MEDS: INSULIN REGULAR 100 UNIT/ML SUBCUT SCH ×3 (07:10→17:10)
[2020-01-03] MEDS: SODIUM CHLOR 0.9% KCL 20 MEQ 20 MEQ/1,000 ML BAG IV SCH (07:20)
[2020-01-03] MEDS: POTASSIUM CHLORIDE RIDER 10 MEQ in PREMIX 1 EACH IV SCH ×3 (08:37→10:52)
[2020-01-03] MEDS: DOCUSATE SODIUM 100 MG CAPSULE PO SCH (08:49)
[2020-01-03] MEDS: PANTOPRAZOLE 40 MG TABLET PO SCH (08:49)
[2020-01-03] MEDS: glipiZIDE 10 MG TABLET PO SCH (08:50)
[2020-01-03] MEDS: ASPIRIN EC 81 MG TABLET PO SCH (08:50)
[2020-01-03] MEDS: traMADol 50 MG TABLET PO PRN (08:50)
[2020-01-03] MEDS: buPROPion 75 MG TABLET PO SCH ×2 (08:50→21:27)
[2020-01-03] MEDS: LIDOCAINE 5% PATCH TRANSDERM SCH (08:51)
[2020-01-03] MEDS: POTASSIUM CHLORIDE 10 MEQ TABLET PO SCH ×2 (08:56→21:27)
[2020-01-03] MEDS: METOPROLOL TARTRATE 100 MG TABLET PO SCH ×2 (08:56→21:27)
[2020-01-03] MEDS: BUDESONIDE/FORMOTEROL 160-4.5 INHALER 6 GM INH SCH ×2 (09:39→21:26)
[2020-01-03] MEDS: MUPIROCIN 2% OINT 22 GM TUBE TOP SCH ×2 (09:39→21:26)
[2020-01-03] MEDS: DESITIN 4OZ/NYSTATIN 15 GRAM MIXTURE PASTE TOP SCH (09:45)
[2020-01-03] MEDS: CITALOPRAM 20 MG TABLET PO SCH (21:27)
[2020-01-03] MEDS: DOCUSATE/SENNA 50-8.6 MG TABLET PO SCH (21:27)
[2020-01-03] MEDS: ATORVASTATIN 40 MG TABLET PO SCH (21:27)
[2020-01-04] MEDS: INSULIN REGULAR 100 UNIT/ML SUBCUT SCH ×3 (02:21→11:11)
[2020-01-04] MEDS: SODIUM CHLOR 0.9% KCL 20 MEQ 20 MEQ/1,000 ML BAG IV SCH (02:21)
[2020-01-04] MEDS: DESITIN 4OZ/NYSTATIN 15 GRAM MIXTURE PASTE TOP SCH ×2 (03:08→08:44)
[2020-01-04 05:46] LABS: Basophils % 0.3 % (0.0-0.8); Eosinophils # 0.2 10*3/uL (0.0-0.87); Eosinophils % 2.5 % (0.00-10.9); Hematocrit 34.6 VOL% (35.7-47.0); Hemoglobin 10.9 GM/DL (12.0-16.0); Immature Granulocytes % 0.5 %; Immature Granulocytes Absolute 0.03 #; Lymphocytes # 0.7 10*3/uL (1.4-4.0); Lymphocytes % 12.4 % (21.3-54.2); Mean Corpuscular HGB Conc 31.5 GM/DL (32-36); Mean Corpuscular Volume 96.6 FL (87-102); Mean Platelet Volume 9.6 FL (9.6-12.0); Monocytes % 8.8 % (1.7-12.7); Neutrophils % 75.5 % (38.7-73.9); Platelet Count 149 T/CUMM (130-400); Red Blood Count 3.58 MC/CUMM (3.8-5.5); Red Cell Distribution Width 13.2 % (9.3-17.3); White Blood Count 5.9 T/CUMM (4-12)
[2020-01-04] MEDS: traMADol 50 MG TABLET PO PRN (06:08)
[2020-01-04 06:13] LABS: Osmolality,Calculated 273.7 MOS/KG (273-304)
[2020-01-04] MEDS: LIDOCAINE 5% PATCH TRANSDERM SCH (08:42)
[2020-01-04] MEDS: MUPIROCIN 2% OINT 22 GM TUBE TOP SCH (08:43)
[2020-01-04] MEDS: ASPIRIN EC 81 MG TABLET PO SCH (08:43)
[2020-01-04] MEDS: METOPROLOL TARTRATE 100 MG TABLET PO SCH (08:43)
[2020-01-04] MEDS: glipiZIDE 10 MG TABLET PO SCH (08:43)
[2020-01-04] MEDS: PANTOPRAZOLE 40 MG TABLET PO SCH (08:43)
[2020-01-04] MEDS: DOCUSATE SODIUM 100 MG CAPSULE PO SCH (08:43)
[2020-01-04] MEDS: buPROPion 75 MG TABLET PO SCH (08:43)
[2020-01-04] MEDS: BUDESONIDE/FORMOTEROL 160-4.5 INHALER 6 GM INH SCH (08:44)
[2020-01-04] MEDS ORDERED: POTASSIUM CHLORIDE 20 MEQ TABLET PO SCH (09:00)
[2020-01-04 11:51] VITALS: BP 136/66
== END 2020-01-04 13:06 | disposition swing bed (61) | DRG 478 ==
LOC: N.EDINP 17:57 → N.ED 17:57 → N.3E 21:46
PROVIDERS: ADMIT Family Medicine; ATTEND Family Medicine